=== PATIENT | female | born 1945 | race Caucasian/White ===

== ENCOUNTER 2021-02-14 08:08 | Outpatient (CLI) | payer MEDICARE ==
[2021-02-14] VITALS (15 sets, daily range): BP systolic 102–157; BP diastolic 54–92
[~2021-02-14] VITALS: Ht 157.5 cm; Wt 102.1 kg
[2021-02-14] MEDS ORDERED: FLUT1DIS3 IH (08:42)
[2021-02-14] MEDS ORDERED: MONT10TA49 PO (08:42)
[2021-02-14] MEDS ORDERED: GABA-585 PO (08:42)
[2021-02-14] MEDS ORDERED: LEVO75TA5 PO (08:42)
[2021-02-14] MEDS ORDERED: EPIPEN0.3 MG/0.3 IJ (08:42)
[2021-02-14] MEDS ORDERED: DULO60CA6 PO (08:42)
[2021-02-14] MEDS ORDERED: LIPITOR80 MG PO (08:42)
[2021-02-14] MEDS ORDERED: ASPI-630 PO (08:42)
[2021-02-14] MEDS ORDERED: FURO-69 PO (08:42)
[2021-02-14] MEDS ORDERED: ALBU2.5V8 IH (08:42)
[2021-02-14] MEDS ORDERED: UMEC62.5 IH (08:42)
[2021-02-14] MEDS ORDERED: LISI-379 PO (08:42)
[2021-02-14] MEDS ORDERED: SECU150P SQ (08:42)
[2021-02-14] MEDS ORDERED: ANAS1TAB47 PO (08:42)
[2021-02-14] MEDS ORDERED: FAMO20TA5 PO (08:42)
[2021-02-14 08:55] LABS: BASO % 1 % (0-3); EOS # 0.2 x10^3/uL (0.0-0.7); EOS % 4 % (0-3); HEMATOCRIT 36.6 % (36.0-47.0); HEMOGLOBIN 12.5 g/dL (12.0-15.5); LYMPH # 0.8 x10^3/uL (1.0-4.8); LYMPH % 15 % (24-48); MEAN CORPUSCULAR HEMOGLOBIN 29 pg (25-35); MEAN CORPUSCULAR HGB CONC 34 g/dL (31-37); MEAN CORPUSCULAR VOLUME 84 fL (79-100); MONO # 0.4 x10^3/uL (0.0-1.1); MONO % 8 % (0-9); NEUT # 3.8 x10^3/uL (1.8-7.7); NEUT % 72 % (31-73); PLATELET COUNT 247 x10^3/uL (140-400); RED BLOOD COUNT 4.35 x10^6/uL (3.50-5.40); RED CELL DISTRIBUTION WIDTH 14.7 % (11.5-14.5); WHITE BLOOD COUNT 5.2 x10^3/uL (4.0-11.0)
[2021-02-14 09:05] LABS: PROTHROMBIN TIME PATIENT 12.1 SEC (11.7-14.0)
[2021-02-14] MEDS ORDERED: LIDOCAINE WITH 8.4% SOD BICARB 3 ML DISP.SYRIN. ONE (09:19)
[2021-02-14] MEDS ORDERED: fentaNYL PF VIAL 100 MCG/2 ML VIAL ONE (09:33)
[2021-02-14] MEDS ORDERED: MIDAZOLAM HCL/PF 2 MG/2 ML VIAL. ONE (09:33)
[2021-02-14] MEDS ORDERED: MIDAZOLAM HCL/PF 2 MG/2 ML VIAL. IV ONE (09:45)
[2021-02-14] MEDS ORDERED: LIDOCAINE WITH 8.4% SOD BICARB 3 ML DISP.SYRIN. IJ ONE (09:45)
[2021-02-14] MEDS ORDERED: fentaNYL PF VIAL 100 MCG/2 ML VIAL IV ONE (09:45)
--- NOTE | 2021-02-14 10:17 | PDOC ---
MODERATE SEDATION ASSESSMENT RISKS/ALTERNATIVES Risks/Alternatives Risks and alternatives of this type of sedation and procedure discussed with: RISK/ALTERNATIVES: Patient H & P ON CHART H & P H & P on chart and reviewed for co-morbid conditions and appropriate labs. H&P ON CHART: Yes STATUS PREG STATUS ASSESSED: Yes MEDS/ALLERGIES REVIEWED Meds/Allergies Reviewed Medications and Allergies including time and route of recently administered narcotics and sedatives. MEDS/ALLERGIES REVIEWED: Yes ASA RATING ASA RATING: II AIRWAY ASSESSMENT Airway Assessment Airway patency, oral function limitations, presence of caps, crowns, dentures, partials, and ability to extend neck assessed. AIRWAY ASSESSMENT: Yes MALLAMPATI SCORE MALLAMPATI SCORE: II PRE-SEDATION ASSESSMENT PRE-SEDATION ASSESSMENT: Yes FATIMAH DUMAS MD February 14, 2021 10:17
--- NOTE | 2021-02-14 10:20 | PDOC ---
BRIEF OPERATIVE NOTE Pre-Op Diagnosis left lung mass Post-Op Diagnosis left lung mass Procedure Performed CT biopsy Surgeon Demi EBL minimal Anesthesia Type: Conscious Sedation Specimens Obtained scant necrotic tissue fragments divided between formalin for histopathology and moist telfa for culture Findings left cavitary lung mass yielding scant necrotic tissue fragments Complications no immediate FATIMAH DUMAS MD February 14, 2021 10:20
--- NOTE | 2021-02-14 13:13 | NUR ---
Patient's PIV removed, education/instructions provided on site care, sedation, biopsy. Patient and verbalized understanding. All belongings taken w/ patient at time of d/c. Patient's driving patient home. Order received from Dr. Simms to d/c patient, CXR stable. VS stable.
--- NOTE | 2021-02-14 13:48 | RAD ---
XR CHEST 1V History: Status post left lung biopsy. Comparison: CT chest 02/07/2021 Technique: Portable AP chest radiograph. Findings: The lungs are hypoinflated. Retrocardiac opacities may represent atelectasis and known masslike conso lidation. No pneumothorax. Left costophrenic angle is obscured, atelectasis versus small effusion. Pr ominent cardiac silhouette with calcified aorta. Right breast coarse calcifications. Impression: 1. No postprocedure pneumothorax identified. Left basilar consolidation and atelectasis versus small effusion. Electronically signed by: Tank Odonnell MD (02/14/2021 1:45 PM) [facility]
--- NOTE | 2021-02-14 13:50 | RAD ---
XR CHEST 2V History: Status post lung biopsy. Comparison: 02/14/2021, 02/02/2021 Technique: PA and lateral chest radiographs. Findings: The lungs are adequately inflated. Redemonstrated retrocardiac consolidation versus mass. Left basila r atelectasis and possible trace pleural effusion. No pneumothorax. Aortic calcification. Degenerativ e changes of the spine. Impression: 1. Redemonstrated no retrocardiac masslike consolidation. 2. No pneumothorax. Left basilar atelectasis and possible trace pleural effusion. Electronically signed by: Tank Odonnell MD (02/14/2021 1:47 PM) [facility]
--- NOTE | 2021-02-14 15:08 | RAD ---
Procedure: CT-guided biopsy of a left lung mass Clinical Indication: Adult female with left lung mass Sedation: Conscious sedation was administered with a total intraprocedural [id number] time of 28 minutes. The patient was monitored by a qualified independent observer throughout the time of sedation. Please refer to the medical record for exact doses of medications utilized to achieve moderate sedation. Antibiotics: None Sterility: The procedure was performed in its entirety using appropriate elements of sterile technique. Consent: The procedure was explained in its entirety to the patient or the patients designated payable representative by a member of the treatment team, including a discussion of the risks, benefits and commonly accepted alternatives to the procedure, as well as the expected consequences of no therapy whatsoever. Discussion of the risks included, but was not limited to, those that are most frequent and those that are rare but possibly severe or life-threatening, as well as the possibility of unforeseen complications. Technique and Findings: Following informed consent, the patient was prepped and draped in usual sterile fashion. Preliminary CT scan of the area of interest was performed. 1% lidocaine was used to achieve local anesthesia over the area of interest. A small dermatotomy was made. Under periodic CT surveillance, a 19-gauge needle guide was advanced towards the target lesion and multiple 20-gauge core biopsy passes were performed yielding scant tissue fragments which were divided between formalin and nonbacteriostatic saline for microbiologic analysis. Given the skin nature of the specimen, the needle guide was repositioned and several additional core biopsy passes were performed, once again yielding scant additional tissue. A collagen plug was deployed across the pleural tract as the needle was removed and hemostasis was achieved with manual compression. Complications: No immediate Impression: 1. CT-guided left lung mass biopsy as described. PQRS Compliance Statement: One or more of the following individualized dose reduction techniques were utilized for this examination: 1. Automated exposure control 2. Adjustment of the mA and/or kV according to patient size 3. Use of iterative reconstruction technique
--- NOTE | 2021-02-16 09:08 | PATHOLOGY ---
[facility] Accession Number: [id number] . 01 Material submitted: . lung - LEFT LUNG MASS CORE. Modifiers: left . 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 SEE COMMENT. (JPM:plumbing service technician; 02/15/2021) MBR 02/15/2021 1618 Local . 02 Comment: Sections of the left lung mass CT-guided needle biopsy reveal small fragments of non-small cell carcinoma having a papillary architecture. These tissue fragments are lined by atypical cells having eosinophilic cytoplasm and possessing enlarged, rounded to ovoid nuclei containing nucleoli. There are intranuclear inclusions present in some of the tumor cells. The tissue fragments show a central core of chronic inflammatory cells. One of the biopsy segments is composed of dense fibrous tissue showing focal chronic inflammation and focally lined along one end by similar appearing atypical cells. The morphologic findings are supportive of the diagnosis of non-small cell carcinoma and are suggestive of papillary adenocarcinoma. The case is also examined by Dr. Smyth, who concurs with the diagnosis. The results are reported to Dr. Betancur on 02/16/21 at 8:55 AM. (JPM:plumbing service technician; 02/15/2021) . 02 Electronically signed: . Eliud Martinez MD, Pathologist NPI- [id number] . 01 Gross description: . The specimen is received in formalin, labeled "Elza Anderson, left lung mass". Received are multiple minute fragments of pale arredondo friable tissue measuring 0.2 x 0.2 x 0.1 cm in aggregate dimensions. The specimen is filtered and entirely submitted in cassette A1. (CAA; 02/14/2021) QAC/QAC 02/14/2021 1501 Local . 02 Pathologist provided ICD-10: C34.92 . 02 CPT . 003873 Specimen Comment: A courtesy copy of this report has been sent to [phone] Specimen Comment: Report sent to Specimen Comment: A duplicate report has been generated due to demographic updates. Performed at: 01 [facility] [address], [place] [id number] MD Heber Akers MD Phone: [phone] Performed at: 02 [facility] [address] [place], [place] [id number] MD Eliud Martinez MD Phone: [phone]
== END 2021-02-14 13:15 | disposition home or self-care (01) ==
LOC: INTRAD 08:08
PROVIDERS: ATTEND Radiology Radiation Oncology
DX: R91.8 Other nonspecific abnormal finding of lung field (principal); C34.92 Malignant neoplasm of unspecified part of left bronchus or lung; E78.00 Pure hypercholesterolemia, unspecified; I10 Essential (primary) hypertension; J44.9 Chronic obstructive pulmonary disease, unspecified; K21.9 Gastro-esophageal reflux disease without esophagitis; M19.90 Unspecified osteoarthritis, unspecified site; F41.9 Anxiety disorder, unspecified; F32.9 Major depressive disorder, single episode, unspecified; Z90.49 Acquired absence of other specified parts of digestive tract; Z98.51 Tubal ligation status; Z98.890 Other specified postprocedural states; Z79.82 Long term (current) use of aspirin; Z79.899 Other long term (current) drug therapy; Z87.891 Personal history of nicotine dependence; Z88.0 Allergy status to penicillin; Z88.2 Allergy status to sulfonamides; Z88.8 Allergy status to other drugs, medicaments and biological substances; Z20.822 Contact with and (suspected) exposure to COVID-19
CPT/HCPCS: 32408; 36415; 71045; 71046; 85025; 85610; 87071; 87075; 87102; 87426; 88305; 99152; 99153; J2250; J3010; J3490

== ENCOUNTER → 2021-02-18 | Outpatient (CLI) | payer MEDICARE ==
[2021-02-14 12:25] VITALS: BP 124/73
[~2021-02-18] MED LIST: ALBU2.5V8 IH; ANAS1TAB47 PO; ASPI-630 PO; DULO60CA6 PO; EPIPEN0.3 MG/0.3 IJ; FAMO20TA5 PO; FLUT1DIS3 IH; FURO-69 PO; GABA-585 PO; LEVO75TA5 PO; LIPITOR80 MG PO; LISI-379 PO; MONT10TA49 PO; SECU150P SQ; UMEC62.5 IH
--- NOTE | 2021-02-22 09:09 | RAD ---
EXAM: Dual modality PET-CT Scan DATE: 02/18/2021 RADIOPHARMACEUTICAL: 14.99 mCi F-18 fluorodeoxyglucose (FDG) IV. CLINICAL HISTORY: Breast cancer staging. COMPARISON: Chest CT dated 02/07/2021. TECHNIQUE: Approximately 45 minutes after tracer administration, routine, attenuation-corrected Posit miguelangel Emission Tomography (PET) images were obtained from the level of the base of the skull through th e level of the mid thighs. Tomographic reconstructions are reviewed in coronal, transaxial and sagitt al planes. Non-contrast CT imaging was performed for attenuation correction and localization purpose s only. These images do not constitute a diagnostic-quality CT examination and were not used to diag nose disease independently of the PET images. The blood glucose level was 105 mg/dL at the time of FDG administration. *One or more of the following individualized dose reduction techniques were utilized for this examina tion: 1. Automated exposure control. 2. Adjustment of the mA and/or kV according to patient size. 3. Use of iterative reconstruction technique. FINDINGS: There is a 4.2 cm radiotracer avid mass within the right breast with an SUV of 4.6. There i s overlying irregular skin thickening and surrounding fatty stranding likely due to invasive malignan cy. There are nonspecific axillary lymph nodes which demonstrate mild radiotracer activity and no koby ar suspicious morphology. There is a radiotracer avid medial left lower lobe mass measuring 3.7 cm with a maximum SUV of 8.3. T here is mild increased radiotracer activity within maximum SUV of 4.8 within a 1.6 cm left subcarinal /paraesophageal lymph node. There is also mild radial tracer activity within maximum SUV of 3.6 withi n a 1.6 cm left paratracheal lymph node. The CT portion of the exam is notable for the aforementioned right breast mass and anterior right jo ast skin thickening. There is a 3.7 cm mass within the medial left lower lobe with surrounding ground glass. There is a 1.2 cm groundglass nodules within the lateral left upper lobe and there few additio nal smaller nonspecific groundglass opacities within both lungs. These do not demonstrate significant increased retained tracer activity above the blood pool. There is no pneumothorax or pleural effusion. There is cardiomegaly. There is heavily calcified ather osclerotic plaque involving the aorta, aortic arch great vessels and coronary arteries. There is dens e calcification of the aortic valve. There are enlarged central pulmonary arteries likely due to nursery manager kieran pulmonary artery hypertension. There are nonspecific mediastinal and hilar lymph nodes. There is a small hiatal hernia. No hepatic lesion is seen on this noncontrast exam. The gallbladder is absent. The pancreas and splee n are unremarkable. There is a 3.0 cm right adrenal nodule which demonstrates no significant increase d radiotracer activity above the blood pool. There is right renal atrophy. There is a tiny suspected right renal cyst. No abnormally thickened or dilated loop of bowel is seen. There is distal colonic d iverticulosis. The bladder is unremarkable. There is a small uterine fibroid. The adnexal regions are unremarkable. There is heavily calcified atherosclerotic plaque involving the aorta and main aortic branch vessels. There is degenerative change throughout the spine. There is no acute finding involving the visualize d portions of the brain. There is heavily calcified atherosclerotic plaque involving the carotid bifu rcations. There is a moderate T12 compression fracture. There is chronic in appearance. IMPRESSION: 1. Radiotracer avid right breast mass with a maximum SUV of 4.6 and overlying skin thickening likely due to invasive malignancy. No axillary or internal mammary lymph node with significant increased rad iotracer activity above the blood pool is seen. 2. Radiotracer avid left lower lobe pulmonary mass measuring 3.7 with a maximum SUV of 8.3. The imagi ng appearance and degree of radiotracer activity favors malignancy. Correlate with recent biopsy find ings. 3. Nonspecific lymph nodes with mildly tracer activity within the left subcarinal/distal paraesophage al and left paratracheal regions, with SUVs of 4.8 and 3.6. These may be reactive or metastatic. 4. 3.0 cm right adrenal nodule. This demonstrates mild radiotracer activity within SUV of 3.0, simila r to background adrenal activity. This can be further assessed with an adrenal protocol MRI. 5. Nonspecific groundglass opacities within both lungs, possibly infectious or inflammatory in etiolo gy. Continued attention the time of follow-up is recommended. 6. Severe calcified atherosclerotic plaque involving the aorta and aortic branch vessels and dense ca lcification of the aortic valve. Electronically signed by: Araceli Infante MD (02/22/2021 9:07 AM) [id number]
== END ==
LOC: PETSC 10:24
PROVIDERS: ATTEND Radiology Radiation Oncology
DX: C34.32 Malignant neoplasm of lower lobe, left bronchus or lung (principal); C50.011 Malignant neoplasm of nipple and areola, right female breast; R91.8 Other nonspecific abnormal finding of lung field; I35.8 Other nonrheumatic aortic valve disorders; N63.10 Unspecified lump in the right breast, unspecified quadrant
CPT/HCPCS: 78815; A9552

== ENCOUNTER → 2021-03-03 | Outpatient (CLI) | payer MEDICARE ==
[2021-02-14 12:25] VITALS: BP 124/73
[2021-03-03 12:37] LABS: BASO % 1 % (0-3); EOS # 0.2 x10^3/uL (0.0-0.7); EOS % 4 % (0-3); HEMATOCRIT 35.3 % (36.0-47.0); HEMOGLOBIN 12.1 g/dL (12.0-15.5); LYMPH # 0.5 x10^3/uL (1.0-4.8); LYMPH % 12 % (24-48); MEAN CORPUSCULAR HEMOGLOBIN 29 pg (25-35); MEAN CORPUSCULAR HGB CONC 34 g/dL (31-37); MEAN CORPUSCULAR VOLUME 83 fL (79-100); MONO # 0.4 x10^3/uL (0.0-1.1); MONO % 10 % (0-9); NEUT # 3.2 x10^3/uL (1.8-7.7); NEUT % 72 % (31-73); PLATELET COUNT 255 x10^3/uL (140-400); RED BLOOD COUNT 4.24 x10^6/uL (3.50-5.40); RED CELL DISTRIBUTION WIDTH 14.7 % (11.5-14.5); WHITE BLOOD COUNT 4.4 x10^3/uL (4.0-11.0)
[2021-03-03 12:43] LABS: CALCIUM 8.7 mg/dL (8.5-10.1); CREATININE 0.8 mg/dL (0.6-1.0); GFR 69.9; POTASSIUM 4.7 mmol/L (3.5-5.1)
[2021-03-03 12:49] LABS: ALBUMIN 3.8 g/dL (3.4-5.0); ALBUMIN/GLOBULIN RATIO 1.2 (1.0-1.7); TOTAL BILIRUBIN 0.6 mg/dL (0.2-1.0)
== END ==
LOC: ONCLAB 11:32
PROVIDERS: ATTEND Internal Medicine Hematology & Oncology
DX: C34.32 Malignant neoplasm of lower lobe, left bronchus or lung (principal)
CPT/HCPCS: 36415; 80053; 85025

== ENCOUNTER → 2021-03-09 | Outpatient (CLI) | payer MEDICARE ==
[2021-03-09] VITALS (10 sets, daily range): BP systolic 89–149; BP diastolic 50–82
[~2021-03-09] MED LIST changes: +HEPARIN PF 500 UNIT/5 ML DISP.SYRIN. IVP ONE; +IODIXANOL 320 MG/ML 100 ML VIAL. ONE; +LIDOCAINE 2%/EPI 1:100,000 20 ML VIAL. IJ ONE; +LIDOCAINE 2%/EPI 1:100,000 20 ML VIAL. ONE; +MIDAZOLAM HCL/PF 2 MG/2 ML VIAL. IV ONE; +MIDAZOLAM HCL/PF 2 MG/2 ML VIAL. ONE; +fentaNYL PF VIAL 100 MCG/2 ML VIAL IV ONE; +fentaNYL PF VIAL 100 MCG/2 ML VIAL ONE
--- NOTE | 2021-03-09 09:42 | PDOC ---
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
--- NOTE | 2021-03-09 10:04 | RAD ---
PROCEDURE: Fluoroscopically and ultrasound-guided placement of the left internal jugular tunnel centr al venous catheter with port Clinical Indication: Lung cancer, breast cancer. Need for chemotherapy access Discussion: The risks and benefits of the procedure were discussed with the patient and/or their in home sales representative. Informed consent was obtained. The patient was brought to the fluoroscopy suite and placed in supine position. A time out procedure was performed. The left neck and chest were prepped and draped using maximum sterile barrier technique including the use of: Current guideline approved cutaneous antisepsis, a large sterile sheet to establish a steril e field. Additionally the granular operator wore a hat, mask, sterile gloves, a sterile gown during the proced ure as well as practiced acceptable hand hygiene prior to placing the port. Ultrasound-guided access: Ultrasound evaluation showed the left jugular vein to be patent and compre ssible. 1 % lidocaine with epinephrine was administered to the skin and subcutaneous tissues overlyin g the left neck and chest. Under direct ultrasound guidance a single wall puncture was made followed by tract dilation and placement of a sheath. An ultrasound image was saved and sent to PACS. Next, an incision was made in an infraclavicular location and a pocket created. The catheter was tunneled b etween the pocket and the venotomy site. The catheter was advanced through the peel away sheath, und er fluoroscopic guidance, such that it's tip was in the mid right atrium. The catheter was connected to the port reservoir. The port was accessed and found to flush and aspirate normally. The reservoir was then placed into the subcutaneous pocket. The wound was closed in layers with 4-0 Vicryl suture. Dermabond was applied overlying the wound, and venotomy site. The patient tolerated procedure without immediate complication. Sedation: Conscious sedation was performed for 40 minutes. Sedation was carried out while the patie nt was continually monitored by a member of the Radiology nursing staff. Continual cardiopulmonary m onitoring was carried out during the procedure. The patient tolerated the procedure well and there w ere no immediate complications. Fluoroscopy time: 1.1mins Dose area product 4 Brown centimeter squared Impression: Successful ultrasound and fluoroscopically guided placement of left internal jugular felton rafael central venous catheter with port Electronically signed by: Alex Swan MD (03/09/2021 10:01 AM) [id number]
--- NOTE | 2021-03-09 10:04 | RAD ---
PROCEDURE: Fluoroscopically and ultrasound-guided placement of the left internal jugular tunnel centr al venous catheter with port Clinical Indication: Lung cancer, breast cancer. Need for chemotherapy access Discussion: The risks and benefits of the procedure were discussed with the patient and/or their screening representative. Informed consent was obtained. The patient was brought to the fluoroscopy suite and placed in supine position. A time out procedure was performed. The left neck and chest were prepped and draped using maximum sterile barrier technique including the use of: Current guideline approved cutaneous antisepsis, a large sterile sheet to establish a steril e field. Additionally the coal pulverizing operator wore a hat, mask, sterile gloves, a sterile gown during the proced ure as well as practiced acceptable hand hygiene prior to placing the port. Ultrasound-guided access: Ultrasound evaluation showed the left jugular vein to be patent and compre ssible. 1 % lidocaine with epinephrine was administered to the skin and subcutaneous tissues overlyin g the left neck and chest. Under direct ultrasound guidance a single wall puncture was made followed by tract dilation and placement of a sheath. An ultrasound image was saved and sent to PACS. Next, an incision was made in an infraclavicular location and a pocket created. The catheter was tunneled b etween the pocket and the venotomy site. The catheter was advanced through the peel away sheath, und er fluoroscopic guidance, such that it's tip was in the mid right atrium. The catheter was connected to the port reservoir. The port was accessed and found to flush and aspirate normally. The reservoir was then placed into the subcutaneous pocket. The wound was closed in layers with 4-0 Vicryl suture. Dermabond was applied overlying the wound, and venotomy site. The patient tolerated procedure without immediate complication. Sedation: Conscious sedation was performed for 40 minutes. Sedation was carried out while the patie nt was continually monitored by a member of the Radiology nursing staff. Continual cardiopulmonary m onitoring was carried out during the procedure. The patient tolerated the procedure well and there w ere no immediate complications. Fluoroscopy time: 1.1mins Dose area product 4 Brown centimeter squared Impression: Successful ultrasound and fluoroscopically guided placement of left internal jugular felton rafael central venous catheter with port Electronically signed by: Alex Swan MD (03/09/2021 10:01 AM) [id number]
--- NOTE | 2021-03-09 11:35 | NUR ---
Patient taken to MRI via wheelchair. VS stable. No bleeding at access site. No pain. Instructions provided on site care, sedation, port. Card and bracelet given to patient. Patient and verbalized understanding. is driving home. RN will de-access port and remove PIV upon completion of MRI. Patient has appt w/ oncologist 03/10.
--- NOTE | 2021-03-09 13:00 | NUR ---
Port a cath de-accessed, PIV removed after MRI. Dressing applied. No bleeding, patient tolerated well. Patient taken to vehicle, driving.
== END | disposition home or self-care (01) ==
LOC: INTRAD 06:43
PROVIDERS: ATTEND Physician Assistant
DX: Z45.2 Encounter for adjustment and management of vascular access device (principal); C50.011 Malignant neoplasm of nipple and areola, right female breast; C34.32 Malignant neoplasm of lower lobe, left bronchus or lung; I10 Essential (primary) hypertension; E78.00 Pure hypercholesterolemia, unspecified; J44.9 Chronic obstructive pulmonary disease, unspecified; K21.9 Gastro-esophageal reflux disease without esophagitis; M19.90 Unspecified osteoarthritis, unspecified site; F41.9 Anxiety disorder, unspecified; F32.9 Major depressive disorder, single episode, unspecified; Z90.49 Acquired absence of other specified parts of digestive tract; Z98.51 Tubal ligation status; Z98.890 Other specified postprocedural states; Z79.899 Other long term (current) drug therapy; Z79.82 Long term (current) use of aspirin; Z87.891 Personal history of nicotine dependence; Z88.0 Allergy status to penicillin; Z88.2 Allergy status to sulfonamides; Z88.8 Allergy status to other drugs, medicaments and biological substances
CPT/HCPCS: 36561; 76937; 77001; 99152; 99153; C1788; C1892; J0690; J2250; J3010; J3490

== ENCOUNTER → 2021-03-09 | Outpatient (CLI) | payer MEDICARE ==
[~2021-03-09] VITALS: Ht 160 cm; Wt 115.9 kg
[~2021-03-09] MED LIST changes: +GADOTERATE 7.5 MMOL/15ML VIAL. IVP ONE; -IODIXANOL 320 MG/ML 100 ML VIAL. ONE; +LEVO750T5 PO; -LIDOCAINE 2%/EPI 1:100,000 20 ML VIAL. IJ ONE; -LIDOCAINE 2%/EPI 1:100,000 20 ML VIAL. ONE; -MIDAZOLAM HCL/PF 2 MG/2 ML VIAL. IV ONE; -MIDAZOLAM HCL/PF 2 MG/2 ML VIAL. ONE; -fentaNYL PF VIAL 100 MCG/2 ML VIAL IV ONE; -fentaNYL PF VIAL 100 MCG/2 ML VIAL ONE
[2021-03-09 07:32] LABS: BASO # 0.1 x10^3/uL (0.0-0.2); BASO % 1 % (0-3); EOS # 0.3 x10^3/uL (0.0-0.7); EOS % 5 % (0-3); HEMATOCRIT 34.6 % (36.0-47.0); HEMOGLOBIN 11.9 g/dL (12.0-15.5); LYMPH # 0.6 x10^3/uL (1.0-4.8); LYMPH % 12 % (24-48); MEAN CORPUSCULAR HEMOGLOBIN 29 pg (25-35); MEAN CORPUSCULAR HGB CONC 34 g/dL (31-37); MEAN CORPUSCULAR VOLUME 83 fL (79-100); MONO # 0.6 x10^3/uL (0.0-1.1); MONO % 12 % (0-9); NEUT # 3.4 x10^3/uL (1.8-7.7); NEUT % 70 % (31-73); PLATELET COUNT 233 x10^3/uL (140-400); RED BLOOD COUNT 4.16 x10^6/uL (3.50-5.40); RED CELL DISTRIBUTION WIDTH 14.5 % (11.5-14.5); WHITE BLOOD COUNT 4.9 x10^3/uL (4.0-11.0)
[2021-03-09 07:36] VITALS: BP 120/82
[2021-03-09 07:41] LABS: PROTHROMBIN TIME PATIENT 12.2 SEC (11.7-14.0)
--- NOTE | 2021-03-09 13:42 | RAD ---
MRI of the Brain without and with Contrast 02/18/2021 Clinical History: Non-small cell lung cancer.. Technique: Unenhanced T1-weighted sagittal and axial and FLAIR, T2-weighted, susceptibility weighted and diffusion-weighted axial images of the brain were obtained. After the intravenous administration of 20 cc of Clariscan, enhanced T1-weighted axial, sagittal and coronal images of the brain were obta ined. Findings: There is generalized parenchymal atrophy. Patchy, confluent and multiple small focal areas of increased signal intensity are seen within the periventricular and subcortical white matter of bot h cerebral hemispheres on the FLAIR and T2-weighted images consistent with areas of small vessel isch emic disease. No acute parenchymal abnormality is seen. No extra-axial fluid collection is noted. No area of abnormal contrast enhancement is seen. There is no MRI evidence of acute ischemia/infarction. Mild mucosal thickening is seen scattered throughout the paranasal sinuses. Normal flow voids are see n within the major vascular structures surrounding the brain parenchyma. IMPRESSION: No acute parenchymal abnormality is seen. There is no MRI evidence of metastatic disease involving the brain parenchyma. Electronically signed by: Charles Owusu MD (03/09/2021 1:39 PM) [id number]
== END ==
LOC: MRI 06:50
PROVIDERS: ATTEND Radiology Radiation Oncology
DX: C34.92 Malignant neoplasm of unspecified part of left bronchus or lung (principal); G31.9 Degenerative disease of nervous system, unspecified
CPT/HCPCS: 36415; 70553; 85025; 85610; A9575

== ENCOUNTER → 2021-03-10 | Outpatient (CLI) | payer MEDICARE ==
[2021-03-09 07:36] VITALS: BP 120/82
[~2021-03-10] MED LIST changes: -GADOTERATE 7.5 MMOL/15ML VIAL. IVP ONE; -HEPARIN PF 500 UNIT/5 ML DISP.SYRIN. IVP ONE; -LEVO750T5 PO
[2021-03-10 09:55] LABS: BASO % 1 % (0-3); EOS # 0.2 x10^3/uL (0.0-0.7); EOS % 5 % (0-3); HEMOGLOBIN 11.3 g/dL (12.0-15.5); LYMPH # 0.6 x10^3/uL (1.0-4.8); LYMPH % 14 % (24-48); MEAN CORPUSCULAR HEMOGLOBIN 29 pg (25-35); MEAN CORPUSCULAR HGB CONC 34 g/dL (31-37); MEAN CORPUSCULAR VOLUME 84 fL (79-100); MONO # 0.5 x10^3/uL (0.0-1.1); MONO % 13 % (0-9); NEUT # 2.7 x10^3/uL (1.8-7.7); NEUT % 67 % (31-73); PLATELET COUNT 220 x10^3/uL (140-400); RED CELL DISTRIBUTION WIDTH 14.7 % (11.5-14.5)
[2021-03-10 09:58] LABS: CALCIUM 8.9 mg/dL (8.5-10.1); CREATININE 0.7 mg/dL (0.6-1.0); GFR 81.6; POTASSIUM 4.8 mmol/L (3.5-5.1)
[2021-03-10 10:05] LABS: ALBUMIN 3.5 g/dL (3.4-5.0); TOTAL BILIRUBIN 0.6 mg/dL (0.2-1.0)
== END ==
LOC: ONCLAB 09:18
PROVIDERS: ATTEND Internal Medicine Hematology & Oncology
DX: C50.011 Malignant neoplasm of nipple and areola, right female breast (principal); C34.32 Malignant neoplasm of lower lobe, left bronchus or lung; Z79.811 Long term (current) use of aromatase inhibitors
CPT/HCPCS: 36415; 80053; 85025

== ENCOUNTER → 2021-03-17 | Outpatient (CLI) | payer MEDICARE ==
[2021-03-09 07:36] VITALS: BP 120/82
[2021-03-17 10:00] LABS: CALCIUM 8.7 mg/dL (8.5-10.1); CREATININE 0.9 mg/dL (0.6-1.0); POTASSIUM 4.3 mmol/L (3.5-5.1)
[2021-03-17 10:03] LABS: ALBUMIN 3.4 g/dL (3.4-5.0); TOTAL BILIRUBIN 0.7 mg/dL (0.2-1.0); TOTAL PROTEIN 6.8 g/dL (6.4-8.2)
[2021-03-17 11:23] LABS: BASO % 1 % (0-3); EOS # 0.2 x10^3/uL (0.0-0.7); EOS % 5 % (0-3); HEMATOCRIT 33.1 % (36.0-47.0); HEMOGLOBIN 11.3 g/dL (12.0-15.5); LYMPH # 0.4 x10^3/uL (1.0-4.8); LYMPH % 10 % (24-48); MEAN CORPUSCULAR HEMOGLOBIN 30 pg (25-35); MEAN CORPUSCULAR HGB CONC 34 g/dL (31-37); MEAN CORPUSCULAR VOLUME 86 fL (79-100); MONO # 0.2 x10^3/uL (0.0-1.1); MONO % 7 % (0-9); NEUT # 2.9 x10^3/uL (1.8-7.7); NEUT % 78 % (31-73); PLATELET COUNT 182 x10^3/uL (140-400); RED BLOOD COUNT 3.83 x10^6/uL (3.50-5.40); RED CELL DISTRIBUTION WIDTH 14.6 % (11.5-14.5); WHITE BLOOD COUNT 3.7 x10^3/uL (4.0-11.0)
== END ==
LOC: ONCLAB 09:06
PROVIDERS: ATTEND Internal Medicine Hematology & Oncology
DX: C34.32 Malignant neoplasm of lower lobe, left bronchus or lung (principal)
CPT/HCPCS: 36415; 80053; 85025

== ENCOUNTER → 2021-03-23 | Outpatient (CLI) | payer MEDICARE ==
[2021-03-09 07:36] VITALS: BP 120/82
[2021-03-23 12:11] LABS: CALCIUM 8.9 mg/dL (8.5-10.1); CREATININE 0.7 mg/dL (0.6-1.0); GFR 81.6; POTASSIUM 4.7 mmol/L (3.5-5.1)
[2021-03-23 12:16] LABS: ALBUMIN 3.6 g/dL (3.4-5.0); ALBUMIN/GLOBULIN RATIO 1.1 (1.0-1.7); MAGNESIUM 1.8 mg/dL (1.8-2.4); TOTAL BILIRUBIN 0.6 mg/dL (0.2-1.0)
[2021-03-23 12:19] LABS: BASO % 1 % (0-3); EOS # 0.1 x10^3/uL (0.0-0.7); EOS % 5 % (0-3); HEMATOCRIT 33.2 % (36.0-47.0); HEMOGLOBIN 11.4 g/dL (12.0-15.5); LYMPH # 0.3 x10^3/uL (1.0-4.8); LYMPH % 11 % (24-48); MEAN CORPUSCULAR HEMOGLOBIN 29 pg (25-35); MEAN CORPUSCULAR HGB CONC 34 g/dL (31-37); MEAN CORPUSCULAR VOLUME 84 fL (79-100); MONO # 0.2 x10^3/uL (0.0-1.1); MONO % 8 % (0-9); NEUT # 1.9 x10^3/uL (1.8-7.7); NEUT % 76 % (31-73); PLATELET COUNT 186 x10^3/uL (140-400); RED BLOOD COUNT 3.93 x10^6/uL (3.50-5.40); RED CELL DISTRIBUTION WIDTH 14.5 % (11.5-14.5); WHITE BLOOD COUNT 2.5 x10^3/uL (4.0-11.0)
[2021-03-23 14:36] LABS: % BANDS 3 % (0-9); % BASOS 1 % (0-3); % EOS 3 % (0-5); % LYMPHS 15 % (24-48); % MONOS 7 % (0-10); % SEGS 71 % (35-66); PLT ESTIMATE ADEQUATE (ADEQUATE)
[2021-03-23 14:37] LABS: OVALOCYTES FEW
== END ==
LOC: ONCLAB 11:39
PROVIDERS: ATTEND Physician Assistant
DX: C34.32 Malignant neoplasm of lower lobe, left bronchus or lung (principal)
CPT/HCPCS: 36415; 80053; 83615; 83735; 85007; 85025

== ENCOUNTER → 2021-03-30 | Outpatient (CLI) | payer MEDICARE ==
[2021-03-09 07:36] VITALS: BP 120/82
[2021-03-30 11:49] LABS: BASO % 1 % (0-3); EOS % 2 % (0-3); HEMATOCRIT 33.2 % (36.0-47.0); HEMOGLOBIN 11.2 g/dL (12.0-15.5); LYMPH # 0.2 x10^3/uL (1.0-4.8); LYMPH % 8 % (24-48); MEAN CORPUSCULAR HEMOGLOBIN 29 pg (25-35); MEAN CORPUSCULAR HGB CONC 34 g/dL (31-37); MEAN CORPUSCULAR VOLUME 84 fL (79-100); MONO # 0.3 x10^3/uL (0.0-1.1); MONO % 10 % (0-9); NEUT # 2.1 x10^3/uL (1.8-7.7); NEUT % 80 % (31-73); PLATELET COUNT 178 x10^3/uL (140-400); RED BLOOD COUNT 3.93 x10^6/uL (3.50-5.40); WHITE BLOOD COUNT 2.6 x10^3/uL (4.0-11.0)
[2021-03-30 12:14] LABS: GFR 54.1; POTASSIUM 4.7 mmol/L (3.5-5.1)
[2021-03-30 12:19] LABS: ALBUMIN 3.6 g/dL (3.4-5.0); ALBUMIN/GLOBULIN RATIO 1.1 (1.0-1.7); TOTAL BILIRUBIN 0.5 mg/dL (0.2-1.0)
[2021-03-30 13:23] LABS: % BANDS 2 % (0-9); % BASOS 2 % (0-3); % LYMPHS 7 % (24-48); % MONOS 9 % (0-10); % SEGS 80 % (35-66); PLT ESTIMATE ADEQUATE (ADEQUATE)
== END ==
LOC: ONCLAB 11:32
PROVIDERS: ATTEND Internal Medicine Hematology & Oncology
DX: D05.11 Intraductal carcinoma in situ of right breast (principal)
CPT/HCPCS: 36415; 80053; 85007; 85025

== ENCOUNTER → 2021-04-06 | Outpatient (CLI) | payer MEDICARE ==
[2021-03-09 07:36] VITALS: BP 120/82
[~2021-04-06] MED LIST changes: +fentaNYL PF VIAL 100 MCG/2 ML VIAL ONE
[2021-04-06 11:51] LABS: BASO % 1 % (0-3); EOS # 0.1 x10^3/uL (0.0-0.7); EOS % 2 % (0-3); HEMATOCRIT 32.2 % (36.0-47.0); LYMPH # 0.2 x10^3/uL (1.0-4.8); MEAN CORPUSCULAR HEMOGLOBIN 29 pg (25-35); MEAN CORPUSCULAR HGB CONC 34 g/dL (31-37); MEAN CORPUSCULAR VOLUME 84 fL (79-100); MONO # 0.2 x10^3/uL (0.0-1.1); MONO % 8 % (0-9); NEUT # 1.9 x10^3/uL (1.8-7.7); NEUT % 79 % (31-73); PLATELET COUNT 108 x10^3/uL (140-400); RED BLOOD COUNT 3.83 x10^6/uL (3.50-5.40); RED CELL DISTRIBUTION WIDTH 15.7 % (11.5-14.5)
[2021-04-06 11:55] LABS: LYMPH % 10 % (24-48)
[2021-04-06 12:13] LABS: CREATININE 0.8 mg/dL (0.6-1.0); GFR 69.9; POTASSIUM 4.8 mmol/L (3.5-5.1)
[2021-04-06 12:20] LABS: ALBUMIN 3.7 g/dL (3.4-5.0); ALBUMIN/GLOBULIN RATIO 1.1 (1.0-1.7); TOTAL BILIRUBIN 0.9 mg/dL (0.2-1.0)
[2021-04-06 13:16] LABS: WHITE BLOOD COUNT 2.4 x10^3/uL (4.0-11.0)
== END ==
LOC: ONCLAB 11:31
PROVIDERS: ATTEND Physician Assistant
DX: C34.32 Malignant neoplasm of lower lobe, left bronchus or lung (principal)
CPT/HCPCS: 36415; 80053; 83735; 85025; J3010

== ENCOUNTER → 2021-04-13 | Outpatient (CLI) | payer MEDICARE ==
[2021-04-11 08:33] VITALS: BP 115/70
[~2021-04-13] MED LIST changes: +LEVO750T5 PO; -fentaNYL PF VIAL 100 MCG/2 ML VIAL ONE
[2021-04-13 13:00] LABS: BASO % 1 % (0-3); EOS % 2 % (0-3); HEMATOCRIT 27.9 % (36.0-47.0); HEMOGLOBIN 9.5 g/dL (12.0-15.5); LYMPH # 0.3 x10^3/uL (1.0-4.8); LYMPH % 15 % (24-48); MEAN CORPUSCULAR HEMOGLOBIN 29 pg (25-35); MEAN CORPUSCULAR HGB CONC 34 g/dL (31-37); MEAN CORPUSCULAR VOLUME 84 fL (79-100); MONO # 0.1 x10^3/uL (0.0-1.1); MONO % 8 % (0-9); NEUT # 1.4 x10^3/uL (1.8-7.7); NEUT % 75 % (31-73); PLATELET COUNT 64 x10^3/uL (140-400); RED BLOOD COUNT 3.33 x10^6/uL (3.50-5.40); RED CELL DISTRIBUTION WIDTH 16.3 % (11.5-14.5)
[2021-04-13 13:10] LABS: WHITE BLOOD COUNT 1.9 x10^3/uL (4.0-11.0)
[2021-04-13 13:11] LABS: CALCIUM 8.9 mg/dL (8.5-10.1); CREATININE 1.4 mg/dL (0.6-1.0); GFR 36.7; POTASSIUM 4.6 mmol/L (3.5-5.1)
[2021-04-13 13:18] LABS: ALBUMIN 3.4 g/dL (3.4-5.0); TOTAL BILIRUBIN 0.8 mg/dL (0.2-1.0); TOTAL PROTEIN 6.8 g/dL (6.4-8.2)
== END ==
LOC: ONCLAB 12:32
PROVIDERS: ATTEND Internal Medicine Hematology & Oncology
DX: C50.011 Malignant neoplasm of nipple and areola, right female breast (principal)
CPT/HCPCS: 36415; 80053; 85025

== ENCOUNTER → 2021-04-13 | Emergency (ER) | payer MEDICARE ==
[2021-04-13 21:15] VITALS: BP 104/53
== END | disposition left against medical advice (07) ==
LOC: ER 19:36
DX: Z91.81 History of falling (principal); Z53.21 Procedure and treatment not carried out due to patient leaving prior to being seen by health care provider

== ENCOUNTER → 2021-04-20 | Outpatient (CLI) | payer MEDICARE ==
[2021-04-15 15:00] VITALS: BP 107/51
[2021-04-20 12:52] LABS: BASO % 0 % (0-3); EOS % 2 % (0-3); HEMATOCRIT 23.7 % (36.0-47.0); LYMPH # 0.1 x10^3/uL (1.0-4.8); LYMPH % 14 % (24-48); MEAN CORPUSCULAR HEMOGLOBIN 29 pg (25-35); MEAN CORPUSCULAR HGB CONC 34 g/dL (31-37); MEAN CORPUSCULAR VOLUME 86 fL (79-100); MONO # 0.1 x10^3/uL (0.0-1.1); MONO % 13 % (0-9); NEUT # 0.8 x10^3/uL (1.8-7.7); NEUT % 71 % (31-73); PLATELET COUNT 120 x10^3/uL (140-400); RED BLOOD COUNT 2.76 x10^6/uL (3.50-5.40); RED CELL DISTRIBUTION WIDTH 17.7 % (11.5-14.5)
[2021-04-20 12:56] LABS: WHITE BLOOD COUNT 1.1 x10^3/uL (4.0-11.0)
[2021-04-20 13:08] LABS: CALCIUM 8.9 mg/dL (8.5-10.1); CREATININE 0.9 mg/dL (0.6-1.0); POTASSIUM 4.3 mmol/L (3.5-5.1)
[2021-04-20 13:14] LABS: ALBUMIN/GLOBULIN RATIO 0.9 (1.0-1.7); TOTAL BILIRUBIN 0.6 mg/dL (0.2-1.0); TOTAL PROTEIN 6.4 g/dL (6.4-8.2)
== END ==
LOC: ONCLAB 12:33
PROVIDERS: ATTEND Physician Assistant
DX: C50.011 Malignant neoplasm of nipple and areola, right female breast (principal)
CPT/HCPCS: 36415; 80053; 85025

== ENCOUNTER → 2021-04-27 | Outpatient (CLI) | payer MEDICARE ==
[2021-04-15 15:00] VITALS: BP 107/51
[2021-04-27 09:41] LABS: BASO % 0 % (0-3); EOS % 1 % (0-3); HEMATOCRIT 24.7 % (36.0-47.0); HEMOGLOBIN 8.4 g/dL (12.0-15.5); LYMPH # 0.4 x10^3/uL (1.0-4.8); LYMPH % 8 % (24-48); MEAN CORPUSCULAR HEMOGLOBIN 29 pg (25-35); MEAN CORPUSCULAR HGB CONC 34 g/dL (31-37); MEAN CORPUSCULAR VOLUME 86 fL (79-100); MONO # 0.7 x10^3/uL (0.0-1.1); MONO % 16 % (0-9); NEUT # 3.4 x10^3/uL (1.8-7.7); NEUT % 75 % (31-73); PLATELET COUNT 213 x10^3/uL (140-400); RED BLOOD COUNT 2.88 x10^6/uL (3.50-5.40); RED CELL DISTRIBUTION WIDTH 20.6 % (11.5-14.5); WHITE BLOOD COUNT 4.6 x10^3/uL (4.0-11.0)
[2021-04-27 09:52] LABS: CALCIUM 8.8 mg/dL (8.5-10.1); GFR 54.1; POTASSIUM 3.4 mmol/L (3.5-5.1)
[2021-04-27 09:59] LABS: ALBUMIN 2.8 g/dL (3.4-5.0); ALBUMIN/GLOBULIN RATIO 0.8 (1.0-1.7); TOTAL BILIRUBIN 0.5 mg/dL (0.2-1.0); TOTAL PROTEIN 6.2 g/dL (6.4-8.2)
[2021-04-27 11:10] LABS: % BANDS 3 % (0-9); % LYMPHS 12 % (24-48); % METAS 2 % (0-0); % MONOS 16 % (0-10); % SEGS 67 % (35-66); NUCLEATED RBC 3
[2021-04-27 11:11] LABS: ANISOCYTOSIS MOD; PLT ESTIMATE ADEQUATE (ADEQUATE); POLYCHROMASIA SLIGHT
== END ==
LOC: ONCLAB 08:59
PROVIDERS: ATTEND Physician Assistant
DX: C50.011 Malignant neoplasm of nipple and areola, right female breast (principal)
CPT/HCPCS: 36415; 80053; 85007; 85025

== ENCOUNTER → 2021-05-04 | Outpatient (CLI) | payer MEDICARE ==
[2021-04-15 15:00] VITALS: BP 107/51
[2021-05-04 09:44] LABS: CALCIUM 9.1 mg/dL (8.5-10.1); CREATININE 0.8 mg/dL (0.6-1.0); GFR 69.9; POTASSIUM 4.3 mmol/L (3.5-5.1)
[2021-05-04 09:50] LABS: ALBUMIN 3.2 g/dL (3.4-5.0); ALBUMIN/GLOBULIN RATIO 0.8 (1.0-1.7); TOTAL BILIRUBIN 0.5 mg/dL (0.2-1.0); TOTAL PROTEIN 7.1 g/dL (6.4-8.2)
[2021-05-04 09:53] LABS: BASO % 0 % (0-3); EOS % 1 % (0-3); HEMATOCRIT 27.4 % (36.0-47.0); HEMOGLOBIN 9.2 g/dL (12.0-15.5); LYMPH # 0.4 x10^3/uL (1.0-4.8); LYMPH % 9 % (24-48); MEAN CORPUSCULAR HEMOGLOBIN 30 pg (25-35); MEAN CORPUSCULAR HGB CONC 34 g/dL (31-37); MEAN CORPUSCULAR VOLUME 88 fL (79-100); MONO # 0.3 x10^3/uL (0.0-1.1); MONO % 6 % (0-9); NEUT # 4.1 x10^3/uL (1.8-7.7); NEUT % 84 % (31-73); PLATELET COUNT 233 x10^3/uL (140-400); RED BLOOD COUNT 3.12 x10^6/uL (3.50-5.40); RED CELL DISTRIBUTION WIDTH 21.4 % (11.5-14.5); WHITE BLOOD COUNT 4.8 x10^3/uL (4.0-11.0)
== END ==
LOC: ONCLAB 09:13
PROVIDERS: ATTEND Physician Assistant
DX: C50.011 Malignant neoplasm of nipple and areola, right female breast (principal)
CPT/HCPCS: 80053; 82607; 82728; 82746; 83540; 83550; 83921; 85025

== ENCOUNTER → 2021-05-11 | Outpatient (CLI) | payer MEDICARE ==
[2021-04-15 15:00] VITALS: BP 107/51
[2021-05-11 11:15] LABS: BASO % 1 % (0-3); EOS # 0.1 x10^3/uL (0.0-0.7); EOS % 3 % (0-3); HEMOGLOBIN 9.1 g/dL (12.0-15.5); LYMPH # 0.5 x10^3/uL (1.0-4.8); LYMPH % 15 % (24-48); MEAN CORPUSCULAR HEMOGLOBIN 30 pg (25-35); MEAN CORPUSCULAR HGB CONC 34 g/dL (31-37); MEAN CORPUSCULAR VOLUME 88 fL (79-100); MONO # 0.6 x10^3/uL (0.0-1.1); MONO % 18 % (0-9); NEUT # 2.2 x10^3/uL (1.8-7.7); NEUT % 64 % (31-73); PLATELET COUNT 232 x10^3/uL (140-400); RED BLOOD COUNT 3.08 x10^6/uL (3.50-5.40); RED CELL DISTRIBUTION WIDTH 21.7 % (11.5-14.5); WHITE BLOOD COUNT 3.5 x10^3/uL (4.0-11.0)
[2021-05-11 11:24] LABS: CALCIUM 8.9 mg/dL (8.5-10.1); CREATININE 0.9 mg/dL (0.6-1.0); POTASSIUM 3.9 mmol/L (3.5-5.1)
[2021-05-11 11:27] LABS: ALBUMIN/GLOBULIN RATIO 0.8 (1.0-1.7); TOTAL BILIRUBIN 0.7 mg/dL (0.2-1.0); TOTAL PROTEIN 6.9 g/dL (6.4-8.2)
[2021-05-11 12:57] LABS: PLT ESTIMATE ADEQUATE (ADEQUATE)
[2021-05-11 12:58] LABS: ANISOCYTOSIS MOD; POLYCHROMASIA OCCASIONAL
== END ==
LOC: ONCLAB 10:22
PROVIDERS: ATTEND Internal Medicine Hematology & Oncology
DX: C34.32 Malignant neoplasm of lower lobe, left bronchus or lung (principal)
CPT/HCPCS: 36415; 80053; 85025

== ENCOUNTER → 2021-05-25 | Outpatient (CLI) | payer MEDICARE ==
[2021-04-15 15:00] VITALS: BP 107/51
[2021-05-25 10:47] LABS: BASO % 1 % (0-3); EOS # 0.3 x10^3/uL (0.0-0.7); EOS % 5 % (0-3); HEMATOCRIT 25.6 % (36.0-47.0); HEMOGLOBIN 8.7 g/dL (12.0-15.5); LYMPH # 0.4 x10^3/uL (1.0-4.8); LYMPH % 7 % (24-48); MEAN CORPUSCULAR HEMOGLOBIN 30 pg (25-35); MEAN CORPUSCULAR HGB CONC 34 g/dL (31-37); MEAN CORPUSCULAR VOLUME 88 fL (79-100); MONO # 0.4 x10^3/uL (0.0-1.1); MONO % 8 % (0-9); NEUT # 4.3 x10^3/uL (1.8-7.7); NEUT % 80 % (31-73); PLATELET COUNT 236 x10^3/uL (140-400); RED BLOOD COUNT 2.91 x10^6/uL (3.50-5.40); RED CELL DISTRIBUTION WIDTH 20.5 % (11.5-14.5); WHITE BLOOD COUNT 5.3 x10^3/uL (4.0-11.0)
[2021-05-25 11:00] LABS: CREATININE 0.7 mg/dL (0.6-1.0); GFR 81.6; POTASSIUM 4.5 mmol/L (3.5-5.1)
[2021-05-25 11:07] LABS: ALBUMIN 2.8 g/dL (3.4-5.0); ALBUMIN/GLOBULIN RATIO 0.7 (1.0-1.7); TOTAL BILIRUBIN 0.6 mg/dL (0.2-1.0); TOTAL PROTEIN 6.6 g/dL (6.4-8.2)
== END ==
LOC: ONCLAB 10:11
PROVIDERS: ATTEND Internal Medicine Hematology & Oncology
DX: C34.32 Malignant neoplasm of lower lobe, left bronchus or lung (principal)
CPT/HCPCS: 36415; 80053; 85025

== ENCOUNTER → 2021-05-27 | Outpatient (CLI) | payer MEDICARE ==
[2021-04-15 15:00] VITALS: BP 107/51
[~2021-05-27] MED LIST changes: +IOHEXOL 300 MG/ML 100ML VIAL. IV ONE
--- NOTE | 2021-05-27 16:15 | RAD ---
CT of the chest with contrast 05/27/2021 INDICATION: Lung cancer restaging. Patient has history of breast cancer and lung cancer. COMPARISON STUDY: PET/CT February 18, 2021. TECHNIQUE: Multidetector CT imaging was performed following the administration of IV contrast. FINDINGS: Heart size is normal. Leftward mediastinal shift secondary to volume loss noted. Dense coronary calci fication noted. There is a left internal jugular port. No pathologically enlarged mediastinal adenopa thy is identified. There is a small left pleural effusion. There is significant atelectasis involving the left lower lob e. Distinguishing atelectatic lung from possible residual mass is not possible. There is no pneumothorax. Subpleural nodule opacity in the left upper lobe measuring approximately 9 mm in diameter is decreased in size since that CT exam. Attention on follow-up recommended.(Axial zach ge 19) No other acute focal infiltrate is identified. Mild compensatory hyperinflation of the right lung is seen. Minimal groundglass opacity in the medial right lower lobe is seen,, likely atelectasis or post radiation change. Limited visualization of the upper abdomen demonstrates stable severe right renal atrophy. Rounded ma ss of the right adrenal gland is unchanged in size. No evidence of acute osseous abnormality is identified. Evolution of postoperative changes in the rig ht breast noted, with decreased subcutaneous stranding and resolution of the previously seen fluid. IMPRESSION: 1. Left lower lobe atelectasis, and small left pleural effusion. Differentiation of atelectatic lung and the previously seen tumor is not possible. Follow-up PET/CT could be helpful to evaluate for resi dual hypermetabolic focus. 2. Evolving postoperative changes following resection of the previously described breast mass 3. Stable appearance of right adrenal mass CT DOSING PQRS STATEMENT: One or more of the following individualized dose reduction techniques were utilized for this examinat ion: 1. Automated exposure control 2. Adjustment of the mA and/or kV according to patient size 3. Use of iterative reconstruction technique Electronically signed by: Alex Swan MD (05/27/2021 4:12 PM) [id number]
== END ==
LOC: CT 10:44
PROVIDERS: ATTEND Physician Assistant
DX: C34.32 Malignant neoplasm of lower lobe, left bronchus or lung (principal); J90 Pleural effusion, not elsewhere classified; J98.11 Atelectasis; I25.10 Atherosclerotic heart disease of native coronary artery without angina pectoris; R93.89 Abnormal findings on diagnostic imaging of other specified body structures; N26.1 Atrophy of kidney (terminal); Z98.890 Other specified postprocedural states
CPT/HCPCS: 71260; Q9967

== ENCOUNTER → 2021-06-03 | Outpatient (CLI) | payer MEDICARE ==
[2021-04-15 15:00] VITALS: BP 107/51
[~2021-06-03] MED LIST changes: -IOHEXOL 300 MG/ML 100ML VIAL. IV ONE
[2021-06-03 13:15] LABS: BASO % 1 % (0-3); EOS # 0.4 x10^3/uL (0.0-0.7); EOS % 7 % (0-3); HEMATOCRIT 27.4 % (36.0-47.0); HEMOGLOBIN 9.4 g/dL (12.0-15.5); LYMPH # 0.6 x10^3/uL (1.0-4.8); LYMPH % 10 % (24-48); MEAN CORPUSCULAR HEMOGLOBIN 30 pg (25-35); MEAN CORPUSCULAR HGB CONC 34 g/dL (31-37); MEAN CORPUSCULAR VOLUME 88 fL (79-100); MONO # 0.4 x10^3/uL (0.0-1.1); MONO % 7 % (0-9); NEUT # 4.2 x10^3/uL (1.8-7.7); NEUT % 75 % (31-73); PLATELET COUNT 250 x10^3/uL (140-400); RED CELL DISTRIBUTION WIDTH 20.3 % (11.5-14.5); WHITE BLOOD COUNT 5.6 x10^3/uL (4.0-11.0)
[2021-06-03 13:27] LABS: CREATININE 0.7 mg/dL (0.6-1.0); GFR 81.6; POTASSIUM 3.6 mmol/L (3.5-5.1)
[2021-06-03 13:33] LABS: ALBUMIN/GLOBULIN RATIO 0.8 (1.0-1.7); TOTAL BILIRUBIN 0.5 mg/dL (0.2-1.0); TOTAL PROTEIN 6.9 g/dL (6.4-8.2)
[2021-06-03 14:10] LABS: ANISOCYTOSIS MOD; PLT ESTIMATE ADEQUATE (ADEQUATE); POIKILOCYTOSIS SLIGHT
== END ==
LOC: ONCLAB 12:58
PROVIDERS: ATTEND Internal Medicine Hematology & Oncology
DX: C34.32 Malignant neoplasm of lower lobe, left bronchus or lung (principal)
CPT/HCPCS: 36415; 80053; 85025

== ENCOUNTER → 2021-06-16 | Outpatient (CLI) | payer MEDICARE ==
[2021-04-15 15:00] VITALS: BP 107/51
[2021-06-16 11:04] LABS: BASO % 1 % (0-3); EOS # 0.2 x10^3/uL (0.0-0.7); EOS % 4 % (0-3); HEMATOCRIT 27.6 % (36.0-47.0); HEMOGLOBIN 9.1 g/dL (12.0-15.5); LYMPH # 0.4 x10^3/uL (1.0-4.8); LYMPH % 9 % (24-48); MEAN CORPUSCULAR HEMOGLOBIN 29 pg (25-35); MEAN CORPUSCULAR HGB CONC 33 g/dL (31-37); MEAN CORPUSCULAR VOLUME 87 fL (79-100); MONO # 0.4 x10^3/uL (0.0-1.1); MONO % 8 % (0-9); NEUT # 3.6 x10^3/uL (1.8-7.7); NEUT % 78 % (31-73); PLATELET COUNT 265 x10^3/uL (140-400); RED BLOOD COUNT 3.17 x10^6/uL (3.50-5.40); RED CELL DISTRIBUTION WIDTH 19.4 % (11.5-14.5); WHITE BLOOD COUNT 4.5 x10^3/uL (4.0-11.0)
[2021-06-16 11:11] LABS: CALCIUM 9.2 mg/dL (8.5-10.1); CREATININE 0.8 mg/dL (0.6-1.0); GFR 69.9; POTASSIUM 4.1 mmol/L (3.5-5.1)
[2021-06-16 11:17] LABS: ALBUMIN 2.9 g/dL (3.4-5.0); ALBUMIN/GLOBULIN RATIO 0.7 (1.0-1.7); TOTAL BILIRUBIN 0.6 mg/dL (0.2-1.0); TOTAL PROTEIN 6.8 g/dL (6.4-8.2)
== END ==
LOC: ONCLAB 10:03
PROVIDERS: ATTEND Internal Medicine Hematology & Oncology
DX: C34.32 Malignant neoplasm of lower lobe, left bronchus or lung (principal)
CPT/HCPCS: 36415; 80053; 85025

== ENCOUNTER → 2021-07-07 | Outpatient (CLI) | payer MEDICARE ==
[2021-04-15 15:00] VITALS: BP 107/51
[~2021-07-07] MED LIST changes: -DULO60CA6 PO; +DULO60CA7 PO
[2021-07-07 12:08] LABS: BASO % 1 % (0-3); EOS # 0.1 x10^3/uL (0.0-0.7); EOS % 4 % (0-3); HEMATOCRIT 30.8 % (36.0-47.0); HEMOGLOBIN 10.1 g/dL (12.0-15.5); LYMPH # 0.3 x10^3/uL (1.0-4.8); MEAN CORPUSCULAR HEMOGLOBIN 29 pg (25-35); MEAN CORPUSCULAR HGB CONC 33 g/dL (31-37); MEAN CORPUSCULAR VOLUME 88 fL (79-100); MONO # 0.3 x10^3/uL (0.0-1.1); MONO % 8 % (0-9); NEUT # 3.1 x10^3/uL (1.8-7.7); NEUT % 81 % (31-73); PLATELET COUNT 204 x10^3/uL (140-400); RED BLOOD COUNT 3.49 x10^6/uL (3.50-5.40); RED CELL DISTRIBUTION WIDTH 19.8 % (11.5-14.5); WHITE BLOOD COUNT 3.9 x10^3/uL (4.0-11.0)
[2021-07-07 12:25] LABS: CALCIUM 8.9 mg/dL (8.5-10.1); CREATININE 0.7 mg/dL (0.6-1.0); GFR 81.6; POTASSIUM 3.8 mmol/L (3.5-5.1)
[2021-07-07 12:30] LABS: LYMPH % 7 % (24-48)
[2021-07-07 12:32] LABS: ALBUMIN 3.1 g/dL (3.4-5.0); ALBUMIN/GLOBULIN RATIO 0.9 (1.0-1.7); TOTAL BILIRUBIN 0.5 mg/dL (0.2-1.0); TOTAL PROTEIN 6.7 g/dL (6.4-8.2)
== END ==
LOC: ONCLAB 11:06
PROVIDERS: ATTEND Physician Assistant
DX: C34.32 Malignant neoplasm of lower lobe, left bronchus or lung (principal)
CPT/HCPCS: 36415; 80053; 85025

== ENCOUNTER → 2021-07-13 | Outpatient (CLI) | payer MEDICARE ==
[2021-04-15 15:00] VITALS: BP 107/51
[2021-07-13 12:33] LABS: BASO % 1 % (0-3); EOS # 0.1 x10^3/uL (0.0-0.7); EOS % 3 % (0-3); HEMATOCRIT 32.3 % (36.0-47.0); HEMOGLOBIN 10.7 g/dL (12.0-15.5); LYMPH # 0.3 x10^3/uL (1.0-4.8); LYMPH % 7 % (24-48); MEAN CORPUSCULAR HEMOGLOBIN 29 pg (25-35); MEAN CORPUSCULAR HGB CONC 33 g/dL (31-37); MEAN CORPUSCULAR VOLUME 88 fL (79-100); MONO # 0.2 x10^3/uL (0.0-1.1); MONO % 6 % (0-9); NEUT % 84 % (31-73); PLATELET COUNT 181 x10^3/uL (140-400); RED BLOOD COUNT 3.68 x10^6/uL (3.50-5.40); RED CELL DISTRIBUTION WIDTH 19.2 % (11.5-14.5); WHITE BLOOD COUNT 3.6 x10^3/uL (4.0-11.0)
[2021-07-13 12:42] LABS: CALCIUM 8.7 mg/dL (8.5-10.1); CREATININE 0.7 mg/dL (0.6-1.0); GFR 81.6; POTASSIUM 3.7 mmol/L (3.5-5.1)
[2021-07-13 12:48] LABS: ALBUMIN 3.3 g/dL (3.4-5.0); ALBUMIN/GLOBULIN RATIO 0.9 (1.0-1.7); TOTAL BILIRUBIN 0.5 mg/dL (0.2-1.0); TOTAL PROTEIN 6.9 g/dL (6.4-8.2)
[2021-07-13 13:21] LABS: PLT ESTIMATE ADEQUATE (ADEQUATE)
== END ==
LOC: ONCLAB 12:21
PROVIDERS: ATTEND Internal Medicine Hematology & Oncology
DX: C50.011 Malignant neoplasm of nipple and areola, right female breast (principal)
CPT/HCPCS: 36415; 80053; 85007; 85025

== ENCOUNTER → 2021-07-22 | Outpatient (CLI) | payer MEDICARE ==
[2021-04-15 15:00] VITALS: BP 107/51
[2021-07-22 12:33] LABS: BASO % 1 % (0-3); EOS # 0.1 x10^3/uL (0.0-0.7); EOS % 4 % (0-3); HEMATOCRIT 31.8 % (36.0-47.0); HEMOGLOBIN 10.9 g/dL (12.0-15.5); LYMPH # 0.3 x10^3/uL (1.0-4.8); LYMPH % 8 % (24-48); MEAN CORPUSCULAR HEMOGLOBIN 29 pg (25-35); MEAN CORPUSCULAR HGB CONC 34 g/dL (31-37); MEAN CORPUSCULAR VOLUME 86 fL (79-100); MONO # 0.3 x10^3/uL (0.0-1.1); MONO % 9 % (0-9); NEUT # 2.9 x10^3/uL (1.8-7.7); NEUT % 79 % (31-73); PLATELET COUNT 200 x10^3/uL (140-400); RED CELL DISTRIBUTION WIDTH 18.7 % (11.5-14.5); WHITE BLOOD COUNT 3.7 x10^3/uL (4.0-11.0)
[2021-07-22 12:40] LABS: CALCIUM 8.8 mg/dL (8.5-10.1); CREATININE 0.7 mg/dL (0.6-1.0); GFR 81.6; POTASSIUM 3.5 mmol/L (3.5-5.1)
[2021-07-22 12:48] LABS: ALBUMIN 3.3 g/dL (3.4-5.0); ALBUMIN/GLOBULIN RATIO 0.9 (1.0-1.7); TOTAL BILIRUBIN 0.5 mg/dL (0.2-1.0)
== END ==
LOC: ONCLAB 11:57
PROVIDERS: ATTEND Physician Assistant
DX: C34.32 Malignant neoplasm of lower lobe, left bronchus or lung (principal)
CPT/HCPCS: 36415; 80053; 83615; 85025

== ENCOUNTER → 2021-07-29 | Outpatient (CLI) | payer MEDICARE ==
[2021-04-15 15:00] VITALS: BP 107/51
[2021-07-29 12:30] LABS: BASO % 1 % (0-3); EOS # 0.2 x10^3/uL (0.0-0.7); EOS % 4 % (0-3); HEMATOCRIT 32.9 % (36.0-47.0); HEMOGLOBIN 10.7 g/dL (12.0-15.5); LYMPH # 0.3 x10^3/uL (1.0-4.8); LYMPH % 7 % (24-48); MEAN CORPUSCULAR HEMOGLOBIN 28 pg (25-35); MEAN CORPUSCULAR HGB CONC 33 g/dL (31-37); MEAN CORPUSCULAR VOLUME 85 fL (79-100); MONO # 0.3 x10^3/uL (0.0-1.1); MONO % 8 % (0-9); NEUT # 3.6 x10^3/uL (1.8-7.7); NEUT % 82 % (31-73); PLATELET COUNT 199 x10^3/uL (140-400); RED BLOOD COUNT 3.88 x10^6/uL (3.50-5.40); RED CELL DISTRIBUTION WIDTH 18.7 % (11.5-14.5); WHITE BLOOD COUNT 4.4 x10^3/uL (4.0-11.0)
[2021-07-29 12:39] LABS: CALCIUM 8.7 mg/dL (8.5-10.1); CREATININE 0.7 mg/dL (0.6-1.0); GFR 81.6
[2021-07-29 12:51] LABS: ALBUMIN 3.3 g/dL (3.4-5.0); ALBUMIN/GLOBULIN RATIO 0.9 (1.0-1.7); TOTAL BILIRUBIN 0.5 mg/dL (0.2-1.0); TOTAL PROTEIN 6.9 g/dL (6.4-8.2)
[2021-07-29 13:09] LABS: % BANDS 1 % (0-9); % EOS 6 % (0-5); % LYMPHS 9 % (24-48); % MONOS 2 % (0-10); % SEGS 82 % (35-66); ANISOCYTOSIS PRESENT; PLT ESTIMATE ADEQUATE (ADEQUATE)
== END ==
LOC: ONCLAB 12:07
PROVIDERS: ATTEND Internal Medicine Hematology & Oncology
DX: C50.011 Malignant neoplasm of nipple and areola, right female breast (principal)
CPT/HCPCS: 36415; 80053; 85007; 85025

== ENCOUNTER → 2021-08-08 | Outpatient (CLI) | payer MEDICARE ==
[2021-04-15 15:00] VITALS: BP 107/51
[2021-08-08 11:04] LABS: BASO % 1 % (0-3); EOS # 0.1 x10^3/uL (0.0-0.7); EOS % 3 % (0-3); HEMATOCRIT 32.1 % (36.0-47.0); HEMOGLOBIN 10.4 g/dL (12.0-15.5); LYMPH # 0.3 x10^3/uL (1.0-4.8); LYMPH % 6 % (24-48); MEAN CORPUSCULAR HEMOGLOBIN 27 pg (25-35); MEAN CORPUSCULAR HGB CONC 33 g/dL (31-37); MEAN CORPUSCULAR VOLUME 84 fL (79-100); MONO # 0.5 x10^3/uL (0.0-1.1); MONO % 10 % (0-9); NEUT # 3.9 x10^3/uL (1.8-7.7); NEUT % 81 % (31-73); PLATELET COUNT 218 x10^3/uL (140-400); RED BLOOD COUNT 3.81 x10^6/uL (3.50-5.40); RED CELL DISTRIBUTION WIDTH 18.7 % (11.5-14.5); WHITE BLOOD COUNT 4.8 x10^3/uL (4.0-11.0)
[2021-08-08 11:59] LABS: CALCIUM 8.7 mg/dL (8.5-10.1); CREATININE 0.6 mg/dL (0.6-1.0); GFR 97.5; POTASSIUM 3.1 mmol/L (3.5-5.1)
[2021-08-08 12:05] LABS: ALBUMIN 3.2 g/dL (3.4-5.0); ALBUMIN/GLOBULIN RATIO 0.9 (1.0-1.7); TOTAL BILIRUBIN 0.7 mg/dL (0.2-1.0); TOTAL PROTEIN 6.9 g/dL (6.4-8.2)
== END ==
LOC: ONCLAB 10:54
PROVIDERS: ATTEND Internal Medicine Hematology & Oncology
DX: C34.32 Malignant neoplasm of lower lobe, left bronchus or lung (principal)
CPT/HCPCS: 36415; 80053; 85025

== ENCOUNTER → 2021-08-09 | Outpatient (CLI) | payer MEDICARE ==
[2021-04-15 15:00] VITALS: BP 107/51
== END ==
LOC: ONCLAB 15:21
PROVIDERS: ATTEND Physician Assistant
DX: C34.32 Malignant neoplasm of lower lobe, left bronchus or lung (principal); R19.7 Diarrhea, unspecified
CPT/HCPCS: 87493; 87505

== ENCOUNTER → 2021-08-10 | Outpatient (CLI) | payer MEDICARE ==
[2021-04-15 15:00] VITALS: BP 107/51
[2021-08-10 13:05] LABS: BASO % 0 % (0-3); EOS # 0.2 x10^3/uL (0.0-0.7); EOS % 4 % (0-3); HEMATOCRIT 31.3 % (36.0-47.0); HEMOGLOBIN 10.2 g/dL (12.0-15.5); LYMPH # 0.3 x10^3/uL (1.0-4.8); LYMPH % 5 % (24-48); MEAN CORPUSCULAR HEMOGLOBIN 27 pg (25-35); MEAN CORPUSCULAR HGB CONC 33 g/dL (31-37); MEAN CORPUSCULAR VOLUME 84 fL (79-100); MONO # 0.5 x10^3/uL (0.0-1.1); MONO % 8 % (0-9); NEUT # 4.5 x10^3/uL (1.8-7.7); NEUT % 83 % (31-73); PLATELET COUNT 238 x10^3/uL (140-400); RED BLOOD COUNT 3.72 x10^6/uL (3.50-5.40); RED CELL DISTRIBUTION WIDTH 18.3 % (11.5-14.5); WHITE BLOOD COUNT 5.4 x10^3/uL (4.0-11.0)
[2021-08-10 13:15] LABS: CALCIUM 8.5 mg/dL (8.5-10.1); CREATININE 0.7 mg/dL (0.6-1.0); GFR 81.6; POTASSIUM 3.6 mmol/L (3.5-5.1)
[2021-08-10 13:21] LABS: ALBUMIN/GLOBULIN RATIO 0.8 (1.0-1.7); TOTAL BILIRUBIN 0.6 mg/dL (0.2-1.0); TOTAL PROTEIN 6.7 g/dL (6.4-8.2)
== END ==
LOC: ONCLAB 12:40
PROVIDERS: ATTEND Physician Assistant
DX: C34.32 Malignant neoplasm of lower lobe, left bronchus or lung (principal)
CPT/HCPCS: 36415; 80053; 85025

== ENCOUNTER → 2021-08-15 | Outpatient (CLI) | payer MEDICARE ==
[2021-04-15 15:00] VITALS: BP 107/51
[2021-08-15 12:23] LABS: BASO % 0 % (0-3); EOS # 0.1 x10^3/uL (0.0-0.7); EOS % 3 % (0-3); HEMATOCRIT 32.6 % (36.0-47.0); HEMOGLOBIN 10.7 g/dL (12.0-15.5); LYMPH # 0.3 x10^3/uL (1.0-4.8); LYMPH % 6 % (24-48); MEAN CORPUSCULAR HEMOGLOBIN 27 pg (25-35); MEAN CORPUSCULAR HGB CONC 33 g/dL (31-37); MEAN CORPUSCULAR VOLUME 83 fL (79-100); MONO # 0.5 x10^3/uL (0.0-1.1); MONO % 10 % (0-9); NEUT # 4.2 x10^3/uL (1.8-7.7); NEUT % 82 % (31-73); PLATELET COUNT 250 x10^3/uL (140-400); RED BLOOD COUNT 3.92 x10^6/uL (3.50-5.40); RED CELL DISTRIBUTION WIDTH 18.1 % (11.5-14.5); WHITE BLOOD COUNT 5.1 x10^3/uL (4.0-11.0)
[2021-08-15 12:36] LABS: CALCIUM 8.7 mg/dL (8.5-10.1); CREATININE 0.7 mg/dL (0.6-1.0); GFR 81.6; POTASSIUM 3.4 mmol/L (3.5-5.1)
[2021-08-15 12:40] LABS: ALBUMIN 3.2 g/dL (3.4-5.0); ALBUMIN/GLOBULIN RATIO 0.8 (1.0-1.7); TOTAL BILIRUBIN 0.5 mg/dL (0.2-1.0); TOTAL PROTEIN 7.1 g/dL (6.4-8.2)
[2021-08-15 12:51] LABS: FREE T4 1.1 ng/dL (0.76-1.46); THYROID STIM HORMONE (TSH) 1.156 uIU/mL (0.358-3.74)
[2021-08-15 13:09] LABS: % BANDS 7 % (0-9); % EOS 2 % (0-5); % LYMPHS 6 % (24-48); % MONOS 8 % (0-10); % MYELOS 1 % (0-0); % SEGS 76 % (35-66); ANISOCYTOSIS SLIGHT; PLT ESTIMATE ADEQUATE (ADEQUATE)
== END ==
LOC: ONCLAB 12:02
PROVIDERS: ATTEND Internal Medicine Hematology & Oncology
DX: C50.011 Malignant neoplasm of nipple and areola, right female breast (principal); I10 Essential (primary) hypertension; Z79.899 Other long term (current) drug therapy
CPT/HCPCS: 36415; 80053; 83615; 84439; 84443; 85007; 85025

== ENCOUNTER → 2021-08-23 | Outpatient (CLI) | payer MEDICARE ==
[2021-04-15 15:00] VITALS: BP 107/51
[2021-08-23 13:49] LABS: BASO % 0 % (0-3); EOS # 0.2 x10^3/uL (0.0-0.7); EOS % 4 % (0-3); HEMATOCRIT 30.4 % (36.0-47.0); HEMOGLOBIN 9.9 g/dL (12.0-15.5); LYMPH # 0.4 x10^3/uL (1.0-4.8); LYMPH % 6 % (24-48); MEAN CORPUSCULAR HEMOGLOBIN 27 pg (25-35); MEAN CORPUSCULAR HGB CONC 33 g/dL (31-37); MEAN CORPUSCULAR VOLUME 83 fL (79-100); MONO # 0.5 x10^3/uL (0.0-1.1); MONO % 9 % (0-9); NEUT # 4.6 x10^3/uL (1.8-7.7); NEUT % 81 % (31-73); PLATELET COUNT 269 x10^3/uL (140-400); RED BLOOD COUNT 3.67 x10^6/uL (3.50-5.40); RED CELL DISTRIBUTION WIDTH 18.3 % (11.5-14.5); WHITE BLOOD COUNT 5.8 x10^3/uL (4.0-11.0)
[2021-08-23 14:01] LABS: CALCIUM 8.3 mg/dL (8.5-10.1); CREATININE 0.9 mg/dL (0.6-1.0); POTASSIUM 3.4 mmol/L (3.5-5.1)
[2021-08-23 14:07] LABS: ALBUMIN/GLOBULIN RATIO 0.9 (1.0-1.7); TOTAL BILIRUBIN 0.4 mg/dL (0.2-1.0); TOTAL PROTEIN 6.5 g/dL (6.4-8.2)
== END ==
LOC: ONCLAB 13:34
PROVIDERS: ATTEND Physician Assistant
DX: C50.011 Malignant neoplasm of nipple and areola, right female breast (principal)
CPT/HCPCS: 36415; 80053; 85025

== ENCOUNTER → 2021-08-29 | Outpatient (CLI) | payer MEDICARE ==
[2021-04-15 15:00] VITALS: BP 107/51
[2021-08-29 13:25] LABS: BASO % 1 % (0-3); EOS # 0.2 x10^3/uL (0.0-0.7); EOS % 4 % (0-3); HEMATOCRIT 31.8 % (36.0-47.0); HEMOGLOBIN 10.3 g/dL (12.0-15.5); LYMPH # 0.4 x10^3/uL (1.0-4.8); LYMPH % 6 % (24-48); MEAN CORPUSCULAR HEMOGLOBIN 27 pg (25-35); MEAN CORPUSCULAR HGB CONC 33 g/dL (31-37); MEAN CORPUSCULAR VOLUME 83 fL (79-100); MONO # 0.5 x10^3/uL (0.0-1.1); MONO % 9 % (0-9); NEUT # 4.7 x10^3/uL (1.8-7.7); NEUT % 81 % (31-73); PLATELET COUNT 252 x10^3/uL (140-400); RED BLOOD COUNT 3.83 x10^6/uL (3.50-5.40); RED CELL DISTRIBUTION WIDTH 18.6 % (11.5-14.5); WHITE BLOOD COUNT 5.9 x10^3/uL (4.0-11.0)
[2021-08-29 13:45] LABS: CALCIUM 8.9 mg/dL (8.5-10.1); CREATININE 0.8 mg/dL (0.6-1.0); GFR 69.9; POTASSIUM 3.8 mmol/L (3.5-5.1)
[2021-08-29 13:55] LABS: ALBUMIN 3.1 g/dL (3.4-5.0); ALBUMIN/GLOBULIN RATIO 0.8 (1.0-1.7); TOTAL BILIRUBIN 0.6 mg/dL (0.2-1.0); TOTAL PROTEIN 6.9 g/dL (6.4-8.2)
== END ==
LOC: ONCLAB 13:04
PROVIDERS: ATTEND Physician Assistant
DX: C50.011 Malignant neoplasm of nipple and areola, right female breast (principal)
CPT/HCPCS: 36415; 80053; 85025

== ENCOUNTER → 2021-09-05 | Outpatient (CLI) | payer MEDICARE ==
[2021-04-15 15:00] VITALS: BP 107/51
[2021-09-05 10:55] LABS: BASO % 0 % (0-3); EOS # 0.2 x10^3/uL (0.0-0.7); EOS % 4 % (0-3); HEMATOCRIT 30.9 % (36.0-47.0); HEMOGLOBIN 9.9 g/dL (12.0-15.5); LYMPH # 0.3 x10^3/uL (1.0-4.8); LYMPH % 6 % (24-48); MEAN CORPUSCULAR HEMOGLOBIN 27 pg (25-35); MEAN CORPUSCULAR HGB CONC 32 g/dL (31-37); MEAN CORPUSCULAR VOLUME 82 fL (79-100); MONO # 0.4 x10^3/uL (0.0-1.1); MONO % 7 % (0-9); NEUT # 4.5 x10^3/uL (1.8-7.7); NEUT % 83 % (31-73); PLATELET COUNT 232 x10^3/uL (140-400); RED BLOOD COUNT 3.75 x10^6/uL (3.50-5.40); WHITE BLOOD COUNT 5.4 x10^3/uL (4.0-11.0)
[2021-09-05 10:56] LABS: CALCIUM 8.6 mg/dL (8.5-10.1); CREATININE 0.7 mg/dL (0.6-1.0); GFR 81.6; POTASSIUM 3.6 mmol/L (3.5-5.1)
[2021-09-05 11:03] LABS: ALBUMIN 2.8 g/dL (3.4-5.0); ALBUMIN/GLOBULIN RATIO 0.8 (1.0-1.7); TOTAL BILIRUBIN 0.6 mg/dL (0.2-1.0); TOTAL PROTEIN 6.4 g/dL (6.4-8.2)
[2021-09-05 13:27] LABS: % BANDS 3 % (0-9); % BASOS 1 % (0-3); % EOS 5 % (0-5); % LYMPHS 7 % (24-48); % MONOS 9 % (0-10); % SEGS 75 % (35-66); PLT ESTIMATE ADEQUATE (ADEQUATE); POIKILOCYTOSIS PRESENT
== END ==
LOC: ONCLAB 10:20
PROVIDERS: ATTEND Physician Assistant
DX: C50.011 Malignant neoplasm of nipple and areola, right female breast (principal)
CPT/HCPCS: 36415; 80053; 85007; 85025

== ENCOUNTER → 2021-09-19 | Outpatient (CLI) | payer MEDICARE ==
[2021-04-15 15:00] VITALS: BP 107/51
[2021-09-19 11:21] LABS: BASO % 1 % (0-3); EOS # 0.2 x10^3/uL (0.0-0.7); EOS % 3 % (0-3); HEMATOCRIT 32.1 % (36.0-47.0); HEMOGLOBIN 10.3 g/dL (12.0-15.5); LYMPH # 0.3 x10^3/uL (1.0-4.8); LYMPH % 5 % (24-48); MEAN CORPUSCULAR HEMOGLOBIN 26 pg (25-35); MEAN CORPUSCULAR HGB CONC 32 g/dL (31-37); MEAN CORPUSCULAR VOLUME 82 fL (79-100); MONO # 0.5 x10^3/uL (0.0-1.1); MONO % 7 % (0-9); NEUT # 5.4 x10^3/uL (1.8-7.7); NEUT % 85 % (31-73); PLATELET COUNT 246 x10^3/uL (140-400); RED BLOOD COUNT 3.93 x10^6/uL (3.50-5.40); RED CELL DISTRIBUTION WIDTH 18.7 % (11.5-14.5); WHITE BLOOD COUNT 6.4 x10^3/uL (4.0-11.0)
[2021-09-19 11:33] LABS: CALCIUM 8.6 mg/dL (8.5-10.1); CREATININE 0.7 mg/dL (0.6-1.0); GFR 81.6; POTASSIUM 4.1 mmol/L (3.5-5.1)
[2021-09-19 11:38] LABS: ALBUMIN 2.9 g/dL (3.4-5.0); ALBUMIN/GLOBULIN RATIO 0.7 (1.0-1.7); TOTAL BILIRUBIN 0.6 mg/dL (0.2-1.0); TOTAL PROTEIN 6.9 g/dL (6.4-8.2)
[2021-09-19 12:45] LABS: % BANDS 2 % (0-9); % EOS 3 % (0-5); % LYMPHS 5 % (24-48); % MONOS 1 % (0-10); % SEGS 89 % (35-66); PLT ESTIMATE ADEQUATE (ADEQUATE)
== END ==
LOC: ONCLAB 11:03
PROVIDERS: ATTEND Internal Medicine Hematology & Oncology
DX: C50.011 Malignant neoplasm of nipple and areola, right female breast (principal)
CPT/HCPCS: 36415; 80053; 85007; 85025

== ENCOUNTER → 2021-09-20 | Outpatient (CLI) | payer MEDICARE ==
[2021-04-15 15:00] VITALS: BP 107/51
== END ==
LOC: ONCLAB 12:10
PROVIDERS: ATTEND Physician Assistant
DX: R19.7 Diarrhea, unspecified (principal)
CPT/HCPCS: 87045; 87493

== ENCOUNTER → 2021-09-22 | Outpatient (CLI) | payer MEDICARE ==
[2021-04-15 15:00] VITALS: BP 107/51
[~2021-09-22] MED LIST changes: +IOHEXOL 300 MG/ML 100ML VIAL. IV ONE
--- NOTE | 2021-09-22 09:54 | RAD ---
CT THORAX W History: Lung cancer follow-up. Comparison: 05/27/2021, 02/07/2021. PET/CT 02/18/2021. Technique: CT of the chest with intravenous contrast. Findings: Devices: Left chest port catheter with tip terminating at the lower SVC. Pulmonary arteries: No large or central pulmonary embolism. Enlargement of the main pulmonary arterie s consistent with pulmonary arterial hypertension. Aorta and great vessels: No aneurysm or dissection of the aortic arch or thoracic aorta. Moderate ath erosclerotic calcification. Thyroid: No significant abnormalities. Mediastinum and terri: Prominent right upper paratracheal lymph nodes measure 0.9 cm short axis (axial 13), enlarged from comparisons. Lower pretracheal lymph node measuring 8 mm short axis (axial 27) is slightly enlarged from comparisons. Esophagus: Patulous with thickened wall distally. Heart: Cardiomegaly, heavy coronary artery calcification. Airways, Lungs, Pleura: There has been interval improved aeration of the left lower lobe since May comparison, however, now there is enlargement of the masslike left lower lobe perihilar consolidatio n measuring approximately 8.1 x 5.1 x 7.1 cm (axial 39, coronal 43), previously up to 3.5 cm diameter in February 25. An area of peripheral groundglass adjacent to the pleura on prior exams now more solid in appearance measuring 1.3 cm diameter in the left upper lobe (axial 22). Increasing lingular groundgl ass opacity, somewhat ill-defined measures 1.7 cm diameter (axial 27) this is increasing from May and new from February 25. Peripheral consolidative changes in the anterior right upper lobe and posterior right lower lobe, new from May comparison. Small bilateral pleural effusions, new on the right, so mewhat similar on the left. Upper abdomen: Atrophic right kidney. Right adrenal mass measures 3.0 cm diameter, unchanged. Osseous structures and soft tissues: Redemonstrated compression deformity of T12. No acute osseous fi ndings. Surgical changes of the right breast. Impression: 1. Improved aeration from most recent comparison, however interval enlargement of left lower lobe pe rihilar mass now measuring up to 8.1 cm diameter. This is concerning for progression of disease, sandra matt if patient is experiencing radiation therapy, radiation pneumonitis is not excluded. Recommend co ntinued follow-up. 2. Mediastinal lymph nodes measuring up to 9 mm short axis with interval enlargement are concerning for possible sites of metastatic disease. 3. Increasing conspicuity of solid and groundglass nodules involving the left upper lobe which may r epresent metastatic disease within the lung, additional primary lesions or sites of infection/inflamm ation. 4. New peripheral consolidation in the anterior right upper lobe and posterior right lower lobe may represent radiation changes, however uncertain history of radiation therapy, correlate with treatment history. 5. Redemonstrated indeterminate right adrenal mass, likely represents adenoma given relative lack of hypermetabolism on PET. 6. Small sliding hiatal hernia with distal esophageal thickening and patulous esophagus. Correlate f or esophagitis. ------ Exposure: One or more of the following individualized dose reduction techniques were utilized for thi s examination: 1. Automated exposure control 2. Adjustment of the mA and/or kV according to patient size 3. Use of iterative reconstruction technique. Electronically signed by: Tank Odonnell MD (09/22/2021 9:52 AM) [facility]
== END ==
LOC: CT 08:06
PROVIDERS: ATTEND Physician Assistant
DX: C34.32 Malignant neoplasm of lower lobe, left bronchus or lung (principal); R59.0 Localized enlarged lymph nodes; R91.8 Other nonspecific abnormal finding of lung field; E27.8 Other specified disorders of adrenal gland; K44.9 Diaphragmatic hernia without obstruction or gangrene; K22.89 Other specified disease of esophagus
CPT/HCPCS: 71260; Q9967

== ENCOUNTER → 2021-09-26 | Outpatient (CLI) | payer MEDICARE ==
[2021-04-15 15:00] VITALS: BP 107/51
[~2021-09-26] MED LIST changes: -IOHEXOL 300 MG/ML 100ML VIAL. IV ONE
[2021-09-26 11:54] LABS: BASO % 0 % (0-3); EOS # 0.2 x10^3/uL (0.0-0.7); EOS % 3 % (0-3); HEMATOCRIT 34.8 % (36.0-47.0); LYMPH # 0.4 x10^3/uL (1.0-4.8); LYMPH % 7 % (24-48); MEAN CORPUSCULAR HEMOGLOBIN 26 pg (25-35); MEAN CORPUSCULAR HGB CONC 32 g/dL (31-37); MEAN CORPUSCULAR VOLUME 82 fL (79-100); MONO # 0.5 x10^3/uL (0.0-1.1); MONO % 9 % (0-9); NEUT # 5.2 x10^3/uL (1.8-7.7); NEUT % 82 % (31-73); PLATELET COUNT 265 x10^3/uL (140-400); RED BLOOD COUNT 4.25 x10^6/uL (3.50-5.40); RED CELL DISTRIBUTION WIDTH 19.7 % (11.5-14.5); WHITE BLOOD COUNT 6.3 x10^3/uL (4.0-11.0)
[2021-09-26 11:58] LABS: CALCIUM 8.7 mg/dL (8.5-10.1); CREATININE 0.7 mg/dL (0.6-1.0); GFR 81.6; POTASSIUM 3.7 mmol/L (3.5-5.1)
[2021-09-26 12:04] LABS: ALBUMIN 3.1 g/dL (3.4-5.0); ALBUMIN/GLOBULIN RATIO 0.7 (1.0-1.7); TOTAL BILIRUBIN 0.4 mg/dL (0.2-1.0); TOTAL PROTEIN 7.5 g/dL (6.4-8.2)
== END ==
LOC: ONCLAB 11:37
PROVIDERS: ATTEND Internal Medicine Hematology & Oncology
DX: C34.32 Malignant neoplasm of lower lobe, left bronchus or lung (principal)
CPT/HCPCS: 36415; 80053; 85025

== ENCOUNTER → 2021-10-03 | Outpatient (CLI) | payer MEDICARE ==
[2021-04-15 15:00] VITALS: BP 107/51
[2021-10-03 10:08] LABS: BASO % 0 % (0-3); EOS # 0.2 x10^3/uL (0.0-0.7); EOS % 1 % (0-3); HEMATOCRIT 35.8 % (36.0-47.0); HEMOGLOBIN 11.5 g/dL (12.0-15.5); LYMPH # 0.8 x10^3/uL (1.0-4.8); LYMPH % 7 % (24-48); MEAN CORPUSCULAR HEMOGLOBIN 26 pg (25-35); MEAN CORPUSCULAR HGB CONC 32 g/dL (31-37); MEAN CORPUSCULAR VOLUME 82 fL (79-100); MONO # 0.9 x10^3/uL (0.0-1.1); MONO % 8 % (0-9); NEUT # 9.5 x10^3/uL (1.8-7.7); NEUT % 84 % (31-73); PLATELET COUNT 309 x10^3/uL (140-400); RED BLOOD COUNT 4.37 x10^6/uL (3.50-5.40); RED CELL DISTRIBUTION WIDTH 19.7 % (11.5-14.5); WHITE BLOOD COUNT 11.3 x10^3/uL (4.0-11.0)
[2021-10-03 10:17] LABS: CALCIUM 8.8 mg/dL (8.5-10.1); CREATININE 0.9 mg/dL (0.6-1.0); POTASSIUM 3.9 mmol/L (3.5-5.1)
[2021-10-03 10:23] LABS: ALBUMIN 3.3 g/dL (3.4-5.0); ALBUMIN/GLOBULIN RATIO 0.8 (1.0-1.7); TOTAL BILIRUBIN 0.4 mg/dL (0.2-1.0); TOTAL PROTEIN 7.2 g/dL (6.4-8.2)
== END ==
LOC: ONCLAB 10:03
PROVIDERS: ATTEND Internal Medicine Hematology & Oncology
DX: C50.011 Malignant neoplasm of nipple and areola, right female breast (principal)
CPT/HCPCS: 36415; 80053; 85025

== ENCOUNTER → 2021-10-17 | Outpatient (CLI) | payer MEDICARE ==
[2021-04-15 15:00] VITALS: BP 107/51
[2021-10-17 10:49] LABS: CALCIUM 8.7 mg/dL (8.5-10.1); CREATININE 0.8 mg/dL (0.6-1.0); GFR 69.9; POTASSIUM 3.7 mmol/L (3.5-5.1)
[2021-10-17 10:52] LABS: BASO % 1 % (0-3); EOS # 0.1 x10^3/uL (0.0-0.7); EOS % 3 % (0-3); HEMATOCRIT 35.7 % (36.0-47.0); HEMOGLOBIN 11.6 g/dL (12.0-15.5); LYMPH # 0.3 x10^3/uL (1.0-4.8); LYMPH % 7 % (24-48); MEAN CORPUSCULAR HEMOGLOBIN 26 pg (25-35); MEAN CORPUSCULAR HGB CONC 33 g/dL (31-37); MEAN CORPUSCULAR VOLUME 80 fL (79-100); MONO # 0.4 x10^3/uL (0.0-1.1); MONO % 8 % (0-9); NEUT # 4.2 x10^3/uL (1.8-7.7); NEUT % 82 % (31-73); PLATELET COUNT 207 x10^3/uL (140-400); RED BLOOD COUNT 4.46 x10^6/uL (3.50-5.40); RED CELL DISTRIBUTION WIDTH 18.6 % (11.5-14.5); WHITE BLOOD COUNT 5.1 x10^3/uL (4.0-11.0)
[2021-10-17 10:54] LABS: ALBUMIN 3.2 g/dL (3.4-5.0); ALBUMIN/GLOBULIN RATIO 0.7 (1.0-1.7); TOTAL BILIRUBIN 0.5 mg/dL (0.2-1.0); TOTAL PROTEIN 7.5 g/dL (6.4-8.2)
[2021-10-17 13:19] LABS: % BANDS 2 % (0-9); % BASOS 2 % (0-3); % EOS 3 % (0-5); % LYMPHS 11 % (24-48); % MONOS 4 % (0-10); % SEGS 78 % (35-66); ANISOCYTOSIS SLIGHT; PLT ESTIMATE ADEQUATE (ADEQUATE)
== END ==
LOC: ONCLAB 10:09
PROVIDERS: ATTEND Internal Medicine Hematology & Oncology
DX: C50.011 Malignant neoplasm of nipple and areola, right female breast (principal)
CPT/HCPCS: 36415; 80053; 85007; 85025

== ENCOUNTER → 2021-10-19 | Outpatient (CLI) | payer MEDICARE ==
[2021-04-15 15:00] VITALS: BP 107/51
== END ==
LOC: ONCLAB 11:47
PROVIDERS: ATTEND Internal Medicine Hematology & Oncology
DX: R19.7 Diarrhea, unspecified (principal)
CPT/HCPCS: 87493; 87505

== ENCOUNTER → 2021-10-27 | Outpatient (CLI) | payer MEDICARE ==
[2021-04-15 15:00] VITALS: BP 107/51
[2021-10-27 12:23] LABS: BASO % 0 % (0-3); EOS # 0.1 x10^3/uL (0.0-0.7); EOS % 2 % (0-3); HEMATOCRIT 34.2 % (36.0-47.0); HEMOGLOBIN 11.2 g/dL (12.0-15.5); LYMPH # 0.4 x10^3/uL (1.0-4.8); LYMPH % 6 % (24-48); MEAN CORPUSCULAR HEMOGLOBIN 27 pg (25-35); MEAN CORPUSCULAR HGB CONC 33 g/dL (31-37); MEAN CORPUSCULAR VOLUME 81 fL (79-100); MONO # 0.6 x10^3/uL (0.0-1.1); MONO % 9 % (0-9); NEUT # 5.1 x10^3/uL (1.8-7.7); NEUT % 83 % (31-73); PLATELET COUNT 235 x10^3/uL (140-400); RED BLOOD COUNT 4.23 x10^6/uL (3.50-5.40); RED CELL DISTRIBUTION WIDTH 18.8 % (11.5-14.5); WHITE BLOOD COUNT 6.2 x10^3/uL (4.0-11.0)
[2021-10-27 12:42] LABS: ALBUMIN 2.9 g/dL (3.4-5.0); ALBUMIN/GLOBULIN RATIO 0.8 (1.0-1.7); CALCIUM 8.7 mg/dL (8.5-10.1); CREATININE 0.6 mg/dL (0.6-1.0); GFR 97.5; TOTAL BILIRUBIN 0.4 mg/dL (0.2-1.0); TOTAL PROTEIN 6.6 g/dL (6.4-8.2)
== END ==
LOC: ONCLAB 12:02
PROVIDERS: ATTEND Internal Medicine Hematology & Oncology
DX: C34.32 Malignant neoplasm of lower lobe, left bronchus or lung (principal)
CPT/HCPCS: 36415; 80053; 85025

== ENCOUNTER → 2021-11-03 | Outpatient (CLI) | payer MEDICARE ==
[2021-04-15 15:00] VITALS: BP 107/51
[2021-11-03 13:22] LABS: BASO % 0 % (0-3); EOS % 0 % (0-3); HEMATOCRIT 38.2 % (36.0-47.0); HEMOGLOBIN 12.3 g/dL (12.0-15.5); LYMPH # 0.3 x10^3/uL (1.0-4.8); LYMPH % 3 % (24-48); MEAN CORPUSCULAR HEMOGLOBIN 26 pg (25-35); MEAN CORPUSCULAR HGB CONC 32 g/dL (31-37); MEAN CORPUSCULAR VOLUME 81 fL (79-100); MONO # 0.1 x10^3/uL (0.0-1.1); MONO % 2 % (0-9); NEUT % 95 % (31-73); PLATELET COUNT 282 x10^3/uL (140-400); RED BLOOD COUNT 4.74 x10^6/uL (3.50-5.40); RED CELL DISTRIBUTION WIDTH 18.8 % (11.5-14.5); WHITE BLOOD COUNT 9.5 x10^3/uL (4.0-11.0)
[2021-11-03 13:48] LABS: CALCIUM 8.8 mg/dL (8.5-10.1); CREATININE 0.8 mg/dL (0.6-1.0); GFR 69.9; POTASSIUM 3.8 mmol/L (3.5-5.1)
[2021-11-03 13:52] LABS: ALBUMIN 3.2 g/dL (3.4-5.0); ALBUMIN/GLOBULIN RATIO 0.8 (1.0-1.7); TOTAL BILIRUBIN 0.5 mg/dL (0.2-1.0); TOTAL PROTEIN 7.3 g/dL (6.4-8.2)
[2021-11-03 16:38] LABS: % BANDS 3 % (0-9); % LYMPHS 2 % (24-48); % MONOS 1 % (0-10); % SEGS 94 % (35-66)
[2021-11-03 16:39] LABS: PLT ESTIMATE ADEQUATE (ADEQUATE)
[2021-11-03 16:40] LABS: OVALOCYTES FEW
== END ==
LOC: ONCLAB 13:00
PROVIDERS: ATTEND Internal Medicine Hematology & Oncology
DX: C50.011 Malignant neoplasm of nipple and areola, right female breast (principal)
CPT/HCPCS: 36415; 80053; 85007; 85025

== ENCOUNTER → 2021-11-10 | Outpatient (CLI) | payer MEDICARE ==
[2021-04-15 15:00] VITALS: BP 107/51
[2021-11-10 11:14] LABS: BASO % 0 % (0-3); EOS # 0.1 x10^3/uL (0.0-0.7); EOS % 1 % (0-3); HEMATOCRIT 39.1 % (36.0-47.0); HEMOGLOBIN 12.7 g/dL (12.0-15.5); LYMPH # 0.5 x10^3/uL (1.0-4.8); LYMPH % 4 % (24-48); MEAN CORPUSCULAR HEMOGLOBIN 27 pg (25-35); MEAN CORPUSCULAR HGB CONC 32 g/dL (31-37); MEAN CORPUSCULAR VOLUME 82 fL (79-100); MONO # 0.8 x10^3/uL (0.0-1.1); MONO % 6 % (0-9); NEUT # 12.4 x10^3/uL (1.8-7.7); NEUT % 90 % (31-73); PLATELET COUNT 263 x10^3/uL (140-400); RED BLOOD COUNT 4.78 x10^6/uL (3.50-5.40); RED CELL DISTRIBUTION WIDTH 19.4 % (11.5-14.5); WHITE BLOOD COUNT 13.7 x10^3/uL (4.0-11.0)
[2021-11-10 11:20] LABS: CALCIUM 8.7 mg/dL (8.5-10.1); GFR 54.1
[2021-11-10 11:25] LABS: ALBUMIN 3.1 g/dL (3.4-5.0); ALBUMIN/GLOBULIN RATIO 0.8 (1.0-1.7); TOTAL BILIRUBIN 0.5 mg/dL (0.2-1.0); TOTAL PROTEIN 7.1 g/dL (6.4-8.2)
== END ==
LOC: ONCLAB 10:29
PROVIDERS: ATTEND Internal Medicine Hematology & Oncology
DX: C50.011 Malignant neoplasm of nipple and areola, right female breast (principal)
CPT/HCPCS: 36415; 80053; 85025

== ENCOUNTER → 2021-11-24 | Outpatient (CLI) | payer MEDICARE ==
[2021-04-15 15:00] VITALS: BP 107/51
[2021-11-24 10:56] LABS: BASO % 0 % (0-3); EOS # 0.1 x10^3/uL (0.0-0.7); EOS % 2 % (0-3); HEMATOCRIT 38.3 % (36.0-47.0); HEMOGLOBIN 12.4 g/dL (12.0-15.5); LYMPH # 0.3 x10^3/uL (1.0-4.8); LYMPH % 4 % (24-48); MEAN CORPUSCULAR HEMOGLOBIN 26 pg (25-35); MEAN CORPUSCULAR HGB CONC 32 g/dL (31-37); MEAN CORPUSCULAR VOLUME 82 fL (79-100); MONO # 0.5 x10^3/uL (0.0-1.1); MONO % 6 % (0-9); NEUT # 6.9 x10^3/uL (1.8-7.7); NEUT % 88 % (31-73); PLATELET COUNT 199 x10^3/uL (140-400); RED CELL DISTRIBUTION WIDTH 19.3 % (11.5-14.5); WHITE BLOOD COUNT 7.9 x10^3/uL (4.0-11.0)
[2021-11-24 11:07] LABS: CALCIUM 8.6 mg/dL (8.5-10.1); CREATININE 0.9 mg/dL (0.6-1.0); GFR 60.9; POTASSIUM 4.5 mmol/L (3.5-5.1)
[2021-11-24 11:15] LABS: ALBUMIN 3.2 g/dL (3.4-5.0); TOTAL BILIRUBIN 0.6 mg/dL (0.2-1.0); TOTAL PROTEIN 6.5 g/dL (6.4-8.2)
[2021-11-24 12:51] LABS: % BANDS 6 % (0-9); % EOS 1 % (0-5); % LYMPHS 4 % (24-48); % MONOS 2 % (0-10); % SEGS 87 % (35-66); PLT ESTIMATE ADEQUATE (ADEQUATE)
== END ==
LOC: ONCLAB 10:31
PROVIDERS: ATTEND Internal Medicine Hematology & Oncology
DX: C34.32 Malignant neoplasm of lower lobe, left bronchus or lung (principal)
CPT/HCPCS: 36415; 80053; 85007; 85025

== ENCOUNTER → 2021-12-08 | Outpatient (CLI) | payer MEDICARE ==
[2021-04-15 15:00] VITALS: BP 107/51
[2021-12-08 10:37] LABS: BASO % 0 % (0-3); EOS # 0.1 x10^3/uL (0.0-0.7); EOS % 1 % (0-3); HEMATOCRIT 36.7 % (36.0-47.0); HEMOGLOBIN 11.7 g/dL (12.0-15.5); LYMPH # 0.4 x10^3/uL (1.0-4.8); LYMPH % 5 % (24-48); MEAN CORPUSCULAR HEMOGLOBIN 27 pg (25-35); MEAN CORPUSCULAR HGB CONC 32 g/dL (31-37); MEAN CORPUSCULAR VOLUME 83 fL (79-100); MONO # 0.4 x10^3/uL (0.0-1.1); MONO % 5 % (0-9); NEUT # 7.2 x10^3/uL (1.8-7.7); NEUT % 90 % (31-73); PLATELET COUNT 219 x10^3/uL (140-400); RED BLOOD COUNT 4.42 x10^6/uL (3.50-5.40); WHITE BLOOD COUNT 8.1 x10^3/uL (4.0-11.0)
[2021-12-08 10:47] LABS: CREATININE 0.9 mg/dL (0.6-1.0); GFR 60.9; POTASSIUM 3.7 mmol/L (3.5-5.1)
[2021-12-08 10:53] LABS: ALBUMIN 3.2 g/dL (3.4-5.0); ALBUMIN/GLOBULIN RATIO 0.9 (1.0-1.7); TOTAL BILIRUBIN 0.5 mg/dL (0.2-1.0); TOTAL PROTEIN 6.6 g/dL (6.4-8.2)
== END ==
LOC: ONCLAB 10:07
PROVIDERS: ATTEND Internal Medicine Hematology & Oncology
DX: C34.32 Malignant neoplasm of lower lobe, left bronchus or lung (principal)
CPT/HCPCS: 36415; 80053; 85025

== ENCOUNTER → 2021-12-22 | Outpatient (CLI) | payer MEDICARE ==
[2021-04-15 15:00] VITALS: BP 107/51
[2021-12-22 10:28] LABS: BASO # 0.1 x10^3/uL (0.0-0.2); BASO % 1 % (0-3); EOS # 0.1 x10^3/uL (0.0-0.7); EOS % 1 % (0-3); HEMATOCRIT 35.2 % (36.0-47.0); HEMOGLOBIN 11.7 g/dL (12.0-15.5); LYMPH # 0.5 x10^3/uL (1.0-4.8); LYMPH % 7 % (24-48); MEAN CORPUSCULAR HEMOGLOBIN 27 pg (25-35); MEAN CORPUSCULAR HGB CONC 33 g/dL (31-37); MEAN CORPUSCULAR VOLUME 82 fL (79-100); MONO # 0.5 x10^3/uL (0.0-1.1); MONO % 6 % (0-9); NEUT # 6.4 x10^3/uL (1.8-7.7); NEUT % 85 % (31-73); PLATELET COUNT 208 x10^3/uL (140-400); RED CELL DISTRIBUTION WIDTH 19.4 % (11.5-14.5); WHITE BLOOD COUNT 7.5 x10^3/uL (4.0-11.0)
[2021-12-22 10:56] LABS: ALBUMIN 3.2 g/dL (3.4-5.0); ALBUMIN/GLOBULIN RATIO 0.8 (1.0-1.7); CALCIUM 9.4 mg/dL (8.5-10.1); CREATININE 0.9 mg/dL (0.6-1.0); GFR 60.9; TOTAL PROTEIN 7.1 g/dL (6.4-8.2)
[2021-12-22 10:59] LABS: POTASSIUM 2.9 mmol/L (3.5-5.1)
== END ==
LOC: ONCLAB 10:04
PROVIDERS: ATTEND Internal Medicine Hematology & Oncology
DX: C34.32 Malignant neoplasm of lower lobe, left bronchus or lung (principal)
CPT/HCPCS: 36415; 80053; 85025

== ENCOUNTER → 2021-12-23 | Outpatient (CLI) | payer MEDICARE ==
[2021-04-15 15:00] VITALS: BP 107/51
[~2021-12-23] MED LIST changes: +IOHEXOL 240 MG/ML 50ML VIAL. PO ONE; +IOHEXOL 300 MG/ML 100ML VIAL. IV ONE
--- NOTE | 2021-12-25 18:01 | RAD ---
PQRS Compliance Statement: One or more of the following individualized dose reduction techniques were utilized for this examinat ion: 1. Automated exposure control 2. Adjustment of the mA and/or kV according to patient size 3. Use of iterative reconstruction technique Exam performed: CT chest, abdomen and pelvis with contrast HISTORY: Lung cancer. Follow-up exam. DATE OF SERVICE: 12/23/2021. COMPARISON: CT chest from 09/22/2021 and nuclear medicine PET scan from 02/18/2021 TECHNIQUE: Contiguous helical acquisitions are obtained through the chest, abdomen and pelvis during intravenous administration of 75 cc of Omnipaque 300. Sagittal and coronal reformatted images are obt ained and reviewed. FINDINGS: CT chest: Interval decrease in the size of left lower lobe mass with improved aeration. There is adjacent conso lidation and groundglass opacities which also appear improved. The overall size of the process on suzy miller's study measures 7.3 x 4.7 cm as compared to 8.1 x 5.1 cm on prior study. Additional areas of pare nchymal opacities seen elsewhere in both lungs also appear significantly improved. There is interval decrease in size of right apical parenchymal opacity now measuring 4.5 mm (previously measured 8.0 mm . Interval decrease in the size of pleural-based opacity in the lateral left lower lobe now measures 5 mm (previously measured 12.8 mm. There is a groundglass opacity in the left lingula. Streaky linear opacities in both lower lobes are seen, improved. There is no pleural effusion. Structures at the thoracic inlet including both lobes of the thyroid gland appear grossly normal. Hill pacified neck and intrathoracic great vessels appear normal in course and caliber no mediastinal or h ilar adenopathy is seen. Diffuse atheromatous aortic and coronary calcification is seen. CT abdomen and pelvis: The liver, spleen and pancreas appear normal. Cholecystectomy. Right adrenal nodule containing fatty attenuation likely adrenal adenoma. The left adrenal gland appears normal. Atrophic right kidney like ly chronic. The left kidney appears unremarkable. There is a nonobstructing left renal calculus measu ring up to 7.8 mm. Extensive atheromatous aortic calcification. No retroperitoneal or mesenteric lymp hadenopathy is seen. Small and large bowel loops are nondilated and unremarkable. The urinary bladder is decompressed. The uterus is anteverted. No adnexal masses seen. Diffuse spondy lotic changes seen throughout the thoracolumbar spine. There is mild loss of height of T12 vertebral body, age indeterminate. There is grade 1 anterolisthesis of L4 over L5. Multilevel disc degenerative changes are seen. IMPRESSION: CT chest: 1. Interval decrease in the size of mass in the left lower lobe with improved adjacent airspace opac ity and consolidation. 2. Interval decrease in the size of additional pulmonary nodules as outlined above. CT abdomen and pelvis: 1. Right adrenal adenoma. 2. Atrophic right kidney. 3. No evidence of metastatic disease seen Electronically signed by: Corazon Ho MD (12/25/2021 5:58 PM) [facility]
== END ==
LOC: CT 10:04
PROVIDERS: ATTEND Physician Assistant
DX: C34.32 Malignant neoplasm of lower lobe, left bronchus or lung (principal); R91.8 Other nonspecific abnormal finding of lung field; I25.10 Atherosclerotic heart disease of native coronary artery without angina pectoris; N26.1 Atrophy of kidney (terminal); N20.0 Calculus of kidney; M47.816 Spondylosis without myelopathy or radiculopathy, lumbar region; M43.16 Spondylolisthesis, lumbar region; D35.01 Benign neoplasm of right adrenal gland; Z90.49 Acquired absence of other specified parts of digestive tract
CPT/HCPCS: 71260; 74177; Q9966; Q9967

== ENCOUNTER → 2021-12-29 | Outpatient (CLI) | payer MEDICARE ==
[2021-04-15 15:00] VITALS: BP 107/51
[~2021-12-29] MED LIST changes: -IOHEXOL 240 MG/ML 50ML VIAL. PO ONE; -IOHEXOL 300 MG/ML 100ML VIAL. IV ONE
[2021-12-29 10:17] LABS: BASO % 0 % (0-3); EOS # 0.1 x10^3/uL (0.0-0.7); EOS % 1 % (0-3); HEMATOCRIT 32.8 % (36.0-47.0); HEMOGLOBIN 10.8 g/dL (12.0-15.5); LYMPH # 0.3 x10^3/uL (1.0-4.8); LYMPH % 4 % (24-48); MEAN CORPUSCULAR HEMOGLOBIN 27 pg (25-35); MEAN CORPUSCULAR HGB CONC 33 g/dL (31-37); MEAN CORPUSCULAR VOLUME 82 fL (79-100); MONO # 0.4 x10^3/uL (0.0-1.1); MONO % 7 % (0-9); NEUT # 5.7 x10^3/uL (1.8-7.7); NEUT % 87 % (31-73); PLATELET COUNT 249 x10^3/uL (140-400); RED BLOOD COUNT 3.99 x10^6/uL (3.50-5.40); RED CELL DISTRIBUTION WIDTH 19.3 % (11.5-14.5); WHITE BLOOD COUNT 6.6 x10^3/uL (4.0-11.0)
[2021-12-29 10:24] LABS: CALCIUM 9.1 mg/dL (8.5-10.1); CREATININE 0.8 mg/dL (0.6-1.0); GFR 69.7; POTASSIUM 3.5 mmol/L (3.5-5.1)
[2021-12-29 10:31] LABS: ALBUMIN/GLOBULIN RATIO 0.8 (1.0-1.7); TOTAL BILIRUBIN 0.6 mg/dL (0.2-1.0); TOTAL PROTEIN 6.8 g/dL (6.4-8.2)
[2021-12-29 11:38] LABS: % BANDS 3 % (0-9); % LYMPHS 6 % (24-48); % MONOS 5 % (0-10); % SEGS 86 % (35-66)
[2021-12-29 11:39] LABS: ANISOCYTOSIS PRESENT; PLT ESTIMATE ADEQUATE (ADEQUATE)
== END ==
LOC: ONCLAB 09:54
PROVIDERS: ATTEND Internal Medicine Hematology & Oncology
DX: C50.011 Malignant neoplasm of nipple and areola, right female breast (principal)
CPT/HCPCS: 36415; 80053; 85007; 85025

== ENCOUNTER → 2022-01-30 | Outpatient (CLI) | payer MEDICARE ==
[2021-04-15 15:00] VITALS: BP 107/51
[2022-01-30 10:37] LABS: BASO % 0 % (0-3); EOS # 0.2 x10^3/uL (0.0-0.7); EOS % 3 % (0-3); HEMATOCRIT 36.5 % (36.0-47.0); LYMPH # 0.4 x10^3/uL (1.0-4.8); LYMPH % 6 % (24-48); MEAN CORPUSCULAR HEMOGLOBIN 28 pg (25-35); MEAN CORPUSCULAR HGB CONC 33 g/dL (31-37); MEAN CORPUSCULAR VOLUME 84 fL (79-100); MONO # 0.4 x10^3/uL (0.0-1.1); MONO % 6 % (0-9); NEUT # 5.4 x10^3/uL (1.8-7.7); NEUT % 84 % (31-73); PLATELET COUNT 241 x10^3/uL (140-400); RED BLOOD COUNT 4.35 x10^6/uL (3.50-5.40); RED CELL DISTRIBUTION WIDTH 18.2 % (11.5-14.5); WHITE BLOOD COUNT 6.4 x10^3/uL (4.0-11.0)
[2022-01-30 10:52] LABS: CREATININE 0.7 mg/dL (0.6-1.0); GFR 81.4
[2022-01-30 10:58] LABS: ALBUMIN 3.1 g/dL (3.4-5.0); ALBUMIN/GLOBULIN RATIO 0.8 (1.0-1.7); TOTAL BILIRUBIN 0.5 mg/dL (0.2-1.0); TOTAL PROTEIN 7.1 g/dL (6.4-8.2)
== END ==
LOC: ONCLAB 10:02
PROVIDERS: ATTEND Internal Medicine Hematology & Oncology
DX: C50.011 Malignant neoplasm of nipple and areola, right female breast (principal)
CPT/HCPCS: 36415; 80053; 85025